=== PATIENT | female | born 1950 | race Caucasian/White ===

== ENCOUNTER 2021-10-19 16:00 | Observation (INO) | payer MEDICARE, SELFPAY ==
--- NOTE | 2021-10-19 16:01 | CTR_ITS ---
PROCEDURE INFORMATION: Exam: CT Head Without Contrast Exam date and time: 10/19/2021 4:40 PM Age: 71 years old Clinical indication: Pain; Headache not specified; Prior surgery; Surgery date: 6+ months; Surgery type: Shunt placement, right mastoid TECHNIQUE: Imaging protocol: Computed tomography of the head without contrast. Radiation optimization: All CT scans at this facility use at least one of these dose optimization techniques: automated exposure control; mA and/or kV adjustment per patient size (includes targeted exams where dose is matched to clinical indication); or iterative reconstruction. COMPARISON: [place] [id number] 08/03/2018 11:45 AM RADIATION DOSE METRICS: Total DLP (mGy-cm): 850.54 FINDINGS: Tubes, catheters and devices: Right inferior parietal ventriculoperitoneal shunt catheter, the tip is in the superior right lateral ventricular atrium. Disproportionate enlargement of the lateral ventricles is present with an Hutchins ratio of 57.4%, previously 54.3%. The anterior third ventricular transverse dimension is 18.4 mm, previously 17.0 mm. The fourth ventricle is mildly prominent, stable in size. Brain: There is prominence of the cisterna magna. Cerebellar hemispheric development appears normal, and there is no mass-effect. This represents a normal variant. No hemorrhage. No mass. Ventricles: Mild hypoattenuating foci are noted in the anterior lateral ventricular periventricular white matter bilaterally. Paranasal sinuses: Hypoplastic/absent left frontal sinus, normal variant. Mastoid air cells: Visualized mastoid air cells are well aerated. Orbital cavities: Bilateral prior cataract surgery with lens replacements. Bones/joints: No acute abnormality. No acute fracture. Soft tissues: Unremarkable. Vasculature: Atherosclerotic calcifications are present involving the carotid artery siphons and vertebral arteries bilaterally. CT/CT head wo con* [id number] IMPRESSION: 1. Lateral and 3rd ventricular predominant ventriculomegaly, slight interval increase in size. 2. Mild chronic microvascular ischemic white matter disease.
[2021-10-19 16:06] VITALS: BP 154/74; PULSE 87; RESP 16; TEMP 36.8; O2SAT 94; BMI 27.3
--- NOTE | 2021-10-19 16:18 | ED_ITS ---
Documented by User: Stef Marquez DO 10/27/21 20:00 HPI - Headache General: Chief Complaint: Headache Stated Complaint: heahache Time Seen by Provider: 10/19/21 16:00 Source: patient Mode of arrival: EMS Limitations: no limitations History of Present Illness: 8-year-old female presents to the emergency room with complaints of diarrhea and generally not feeling well. She had taken a stool softener because she thought she had constipation now she developed diarrhea she also has had trouble with some urinary incontinence she has been very dizzy today. She is not had any fever sweats chills no chest pain or shortness of breath. She has had some mild headache as well. In talking to her it seems her dizziness is her worst complaint. Onset (ago): day(s) Onset description: gradually Exacerbating factors: none Relieving factors: nothing Associated symptoms: Reports lightheadedness; Deny chest pain, confusion, cough, diaphoresis, eye pain, eye redness, fever(s), loss of vision, malaise, nausea, neck stiffness, numbness, paresthesias, photophobia, pre-syncope, rash, seizures, short of breath, sound sensitivity, sy ncope, vomiting or weakness Treatments prior to arrival: none Review of Systems Const: Denies: fever(s), malaise or diaphoresis ENMT: Denies: throat pain, ear or mastoid pain, nasal discharge or nasal congestion Card: Reports: lightheadedness; Denies: chest pain, syncope or pre-syncope Resp: Denies: dyspnea, productive cough or non-productive cough GI: Denies: nausea or vomiting : Denies: flank pain, difficulty voiding, dysuria, urinary frequency or urinary urgency Skin/Breast: Denies: rash Neuro: Denies: confusion PFS ED PFSH: Medical History Dandy Walker malformation Dementia Migraine Normal pressure hydrocephalus Seizure Surgical History History of brain shunt History of cholecystectomy History of hysterectomy Physical Exam Const: COMMON NORMALS: no acute distress GENERAL APPEARANCE: cooperative and comfortable ORIENTATION/CONSCIOUSNESS: Yes awake, Yes oriented to person, Yes oriented to place and Yes oriented to time HENMT: COMMON NORMALS: normocephalic, atraumatic, hearing grossly normal bilaterally, external ears normal, EAC's normal, TM's normal bilaterally, Normal nasal mucous membranes and turbinates present, moist oral mucous membranes and oropharynx normal HEAD & SCALP: normocephalic and atraumatic NOSE: Normal nasal mucous membranes and turbinates present EXTERNAL EAR: Yes external ears normal EXTERNAL AUDITORY CANAL: EAC's normal TYMPANIC MEMBRANE: TM's normal bilaterally Eye: COMMON NORMALS: Equal, round and reactive pupils present, EOMs intact bilaterally, conjunctivae normal and no scleral icterus CONJUNCTIVA: Yes conjunctivae normal PUPIL: Yes Equal, round and reactive pupils present DIRECT OPHTHALMOSCOPY: No photophobia Neck/C-Spine: COMMON NORMALS: full ROM, no lymphadenopathy, supple and no JVD Lymph: LYMPHATIC: no lymphadenopathy noted and no lymphedema noted Resp: COMMON NORMALS: normal respiratory effort, No retractions, No use of acc essory muscles and clear to auscultation bilaterally AUSCULTATION: clear to auscultation bilaterally Cardio: COMMON NORMALS: no JVD, regular rate, regular rhythm and No murmurs present (Cardio) RATE: regular rate RHYTHM: regular rhythm GI: COMMON NORMALS: Soft to palpation and No hepatosplenomegaly present AUSCULTATION: Yes normoactive bowel sounds PALPATION: Yes Soft to palpation, No Tenderness to palpation present (GI), No Guarding due to palpation present (GI) and Yes No hepatosplenomegaly present Extremity: COMMON NORMALS: normal to inspection, capillary refill normal, no clubbing, cyanosis or edema, no calf tenderness and no pedal edema Neuro: SENSORIUM/ORIENTATION: Yes oriented to person, Yes oriented to place and Yes oriented to time Skin: COMMON NORMALS: no rashes or lesions noted GENERAL SKIN EXAM: no rashes or lesions noted Course Vital Signs: Vital signs: Vital Signs Temperature 98.5 F 10/21/21 14:18 Pulse Rate 72 10/21/21 14:18 Respiratory Rate 16 10/21/21 14:18 Blood Pressure 120/59 10/21/21 14:18 Pulse Oximetry 96 10/21/21 14:18 MDM - Headache Medical Decision Making Care signed out to Dr. Vega at change of shift. See final notes for diagnosis and disposition. I took patient over from Dr. Pham. Patient's head CT did show some prominent ventricles everything else is otherwise negative she has had an hypoxia here but CTA blood work is all normal I did ambulate her and she is still quite dizzy and having a hard time with her gait she lives home alone we will admit her for observation as she is a fall risk and to further work-up her dizziness. Lab Data : 10/21/21 04:58 10/21/21 04:[address] 10/19/21 16:01 IMPRESSION: 1. Lateral and 3rd ventricular predominant ventriculomegaly, slight interval increase in size. 2. Mild chronic microvascular ischemic white matter disease. Chest X-Ray 10/19/21 17:16 IMPRESSION: 1. No acute cardiopulmonary process. 2. Incidental/nonacute findings are listed in the report. Chest CTA 10/19/21 17:42 IMPRESSION: 1. No evidence for pulmonary embolism. 2. No acute cardiopulmonary process. 3. Incidental/nonacute findings are listed in the report. Laboratory Results WBC 7.4 10^3/uL (4.0-10.0) 10/19/21 16:37 RBC 4.93 10^6/uL (4.1-5.3) 10/19/21 16:37 Hgb 14.1 g/dL (11.5-15.3) 10/19/21 16:37 Hct 43.1 % (37.0-47.0) 10/19/21 16:37 MCV 87.4 fl (81-99) 10/19/21 16:37 MCH 28.6 pg (28.0-34.0) 10/19/21 16:37 MCHC 32.7 g/dL (30.0-36.0) 10/19/21 16:37 RDW 12.5 % (12.1-15.1) 10/19/21 16:37 Plt Count 364 10^3/cmm (130-400) 10/19/21 16:37 MPV 10.0 fL (7.4-10.4) 10/19/21 16:37 Neut % (Auto) 66.3 % 10/19/21 16:37 Lymph % (Auto) 20.0 % 10/19/21 16:37 Sutter % (Auto) 8.8 % 10/19/21 16:37 Eos % (Auto) 2.2 % 10/19/21 16:37 Baso % (Auto) 1.6 % 10/19/21 16:37 Neut # (Auto) 4.87 10^3/uL (1.8-7.7) 10/19/21 16:37 Lymph # (Auto) 1.5 10^3/uL (0.8-4.8) 10/19/21 16:37 Sutter # (Auto) 0.7 10^3/uL (0.2-0.9) 10/19/21 16:37 Eos # (Auto) 0.2 10^3/uL (0.0-0.8) 10/19/21 16:37 Baso # (Auto) 0.1 10^3/uL (0.0-0.1) 10/19/21 16:37 Nucleated RBC % (auto) 0 % 10/19/21 16:37 Nucleated RBCs # 0.0 /100WBC 10/19/21 16:37 Specimen Type Arterial 10/19/21 17:26 Sample Site Brachial, left 10/19/21 17:26 ABG pH 7.40 (7.35-7.45) 10/19/21 17:26 ABG pCO2 40.1 mmHg (35-45) 10/19/21 17:26 ABG pO2 64.1 mmHg (80.0-100.0) L 10/19/21 17:26 ABG HCO3 24.8 mmol/L (22-26) 10/19/21 17:26 ABG O2 Saturation 93.5 10/19/21 17:26 ABG Base Excess 0.1 mmol/L (-2.0-2.0) 10/19/21 17:26 José Luis Test N/a 10/19/21 17:26 A-a O2 Gradient 10.9 mmHg (5-10) H 10/19/21 17:26 Hematocrit 41.0 % (37-47) 10/19/21 17:26 Hgb O2 Saturation 92.0 % (95-100) L 10/19/21 17:26 Carboxyhemoglobin 1.0 %THgb (0.4-20.1) 10/19/21 17:26 Methemoglobin 0.6 % (0.4-1.5) 10/19/21 17:26 Total Hemoglobin 13.4 g/dL (12-16) 10/19/21 17:26 Sodium 138.0 mmol/L (131-143) 10/19/21 17:26 Potassium 4.3 mmol/L (3.5-5.0) 10/19/21 17:26 Glucose 165.0 mg/dL (70-115) H 10/19/21 17:26 Ionized Calcium 1.2 mmol/L (1.1-1.4) 10/19/21 17:26 O2 Delivery Device Nc 10/19/21 17:26 O2 Liters/Min 2.0 % 10/19/21 17:26 FiO2 28.0 % 10/19/21 17:26 Regulatory Auditor ID Amh 10/19/21 17:26 Sodium 135 mmol/L (136-145) L 10/19/21 16:37 Potassium 5.3 mmol/L (3.5-5.1) H 10/19/21 16:37 Chloride 98 mmol/L (98-107) 10/19/21 16:37 Carbon Dioxide 24 mmol/L (22-29) 10/19/21 16:37 Anion Gap 18.3 (5-19) 10/19/21 16:37 BUN 12 mg/dL (8-23) 10/19/21 16:37 Creatinine 1.0 mg/dL (0.5-0.9) H 10/19/21 16:37 GFR Calculation 54.8 mL/min (90-130) L 10/19/21 16:37 Glucose 185 mg/dL (65-115) H 10/19/21 16:37 Calculated Osmolality 285 mOsm/kg (285-295) 10/19/21 16:37 Calcium 9.0 mg/dL (8.5-10.5) 10/19/21 16:37 Troponin T Baseline 6 ng/L (0-10) 10/19/21 16:33 Troponin T 120 Minute 6.00 ng/L (0-10) 10/19/21 19:25 Delta Troponin T 0 ABS# (0-10) 10/19/21 19:25 NT-Pro-B Natriuret Pep 172 pg/mL (0-125) H 10/19/21 16:37 Discharge Plan Discharge Patient Disposition: Admitted As Inpatient Admit Provider: Jhonathan Powell Clinical Impression: Dizziness, Hypoxia Condition: Stable Discharge Diet: Cardiac and Diabetic Discharge Activity: Resume usual activity and Increase activity as tolerated Coding Level of Care Code ED Wet Washer Machine for Malcolm Dao NIH stroke score NIHSS Level Of Consciousness - 1a: 0 Documented by User: Gustabo Vega MD 10/19/21 19:46 HPI - Headache General: Chief Complaint: Headache Stated Complaint: heahache Time Seen by Provider: 10/19/21 16:00 History of Present Illness: . PFSH ED PFSH: Medical History Dandy Walker malformation Dementia Migraine Normal pressure hydrocephalus Seizure Surgical History History of brain shunt History of cholecystectomy History of hysterectomy Course Vital Signs: Vital signs: Vital Signs Temperature 98.5 F 10/21/21 14:18 Pulse Rate 72 10/21/21 14:18 Respiratory Rate 16 10/21/21 14:18 Blood Pressure 120/59 10/21/21 14:18 Pulse Oximetry 96 10/21/21 14:18 MDM - Headache Medical Decision Making I took patient over from Dr. Pham. Patient's head CT did show some prominent ventricles everything else is otherwise negative she has had an hypoxia here but CTA blood work is all normal I did ambulate her and she is still quite dizzy and having a hard time with her gait she lives home alone we will admit her for observation as she is a fall risk and to further work-up her dizziness. Lab Data : 10/21/21 04:58 10/21/21 04:[address] 10/19/21 16:01 IMPRESSION: 1. Lateral and 3rd ventricular predominant ventriculomegaly, slight interval increase in size. 2. Mild chronic microvascular ischemic white matter disease. Chest X-Ray 10/19/21 17:16 IMPRESSION: 1. No acute cardiopulmonary process. 2. Incidental/nonacute findings are listed in the report. Chest CTA 10/19/21 17:42 IMPRESSION: 1. No evidence for pulmonary embolism. 2. No acute cardiopulmonary process. 3. Incidental/nonacute findings are listed in the report. Laboratory Results WBC 7.4 10^3/uL (4.0-10.0) 10/19/21 16:37 RBC 4.93 10^6/uL (4.1-5.3) 10/19/21 16:37 Hgb 14.1 g/dL (11.5-15.3) 10/19/21 16:37 Hct 43.1 % (37.0-47.0) 10/19/21 16:37 MCV 87.4 fl (81-99) 10/19/21 16:37 MCH 28.6 pg (28.0-34.0) 10/19/21 16:37 MCHC 32.7 g/dL (30.0-36.0) 10/19/21 16:37 RDW 12.5 % (12.1-15.1) 10/19/21 16:37 Plt Count 364 10^3/cmm (130-400) 10/19/21 16:37 MPV 10.0 fL (7.4-10.4) 10/19/21 16:37 Neut % (Auto) 66.3 % 10/19/21 16:37 Lymph % (Auto) 20.0 % 10/19/21 16:37 Sutter % (Auto) 8.8 % 10/19/21 16:37 Eos % (Auto) 2.2 % 10/19/21 16:37 Baso % (Auto) 1.6 % 10/19/21 16:37 Neut # (Auto) 4.87 10^3/uL (1.8-7.7) 10/19/21 16:37 Lymph # (Auto) 1.5 10^3/uL (0.8-4.8) 10/19/21 16:37 Sutter # (Auto) 0.7 10^3/uL (0.2-0.9) 10/19/21 16:37 Eos # (Auto) 0.2 10^3/uL (0.0-0.8) 10/19/21 16:37 Baso # (Auto) 0.1 10^3/uL (0.0-0.1) 10/19/21 16:37 Nucleated RBC % (auto) 0 % 10/19/21 16:37 Nucleated RBCs # 0.0 /100WBC 10/19/21 16:37 Specimen Type Arterial 10/19/21 17:26 Sample Site Brachial, left 10/19/21 17:26 ABG pH 7.40 (7.35-7.45) 10/19/21 17: ABG pCO2 40.1 mmHg (35-45) 10/19/21 17: ABG pO2 64.1 mmHg (80.0-100.0) L 10/19/21 17: ABG HCO3 24.8 mmol/L (22-26) 10/19/21 17: ABG O2 Saturation 93.5 10/19/21 17: ABG Base Excess 0.1 mmol/L (-2.0-2.0) 10/19/21 17: José Luis Test N/a 10/19/21 17: A-a O2 Gradient 10.9 mmHg (5-10) H 10/19/21 17:26 Hematocrit 41.0 % (37-47) 10/19/21 17:26 Hgb O2 Saturation 92.0 % (95-100) L 10/19/21 17:26 Carboxyhemoglobin 1.0 %THgb (0.4-20.1) 10/19/21 17: Methemoglobin 0.6 % (0.4-1.5) 10/19/21 17:26 Total Hemoglobin 13.4 g/dL (12-16) 10/19/21 17:26 Sodium 138.0 mmol/L (131-143) 10/19/21 17:26 Potassium 4.3 mmol/L (3.5-5.0) 10/19/21 17:26 Glucose 165.0 mg/dL (70-115) H 10/19/21 17:26 Ionized Calcium 1.2 mmol/L (1.1-1.4) 10/19/21 17: O2 Delivery Device Nc 10/19/21 17:26 O2 Liters/Min 2.0 % 10/19/21 17:26 FiO2 28.0 % 10/19/21 17:26 Regulatory Auditor ID Amh 10/19/21 17:26 Sodium 135 mmol/L (136-145) L 10/19/21 16:37 Potassium 5.3 mmol/L (3.5-5.1) H 10/19/21 16:37 Chloride 98 mmol/L (98-107) 10/19/21 16:37 Carbon Dioxide 24 mmol/L (22-29) 10/19/21 16:37 Anion Gap 18.3 (5-19) 10/19/21 16:37 BUN 12 mg/dL (8-23) 10/19/21 16:37 Creatinine 1.0 mg/dL (0.5-0.9) H 10/19/21 16:37 GFR Calculation 54.8 mL/min (90-130) L 10/19/21 16:37 Glucose 185 mg/dL (65-115) H 10/19/21 16:37 Calculated Osmolality 285 mOsm/kg (285-295) 10/19/21 16:37 Calcium 9.0 mg/dL (8.5-10.5) 10/19/21 16:37 Troponin T Baseline 6 ng/L (0-10) 10/19/21 16:33 Troponin T 120 Minute 6.00 ng/L (0-10) 10/19/21 19:25 Delta Troponin T 0 ABS# (0-10) 10/19/21 19:25 NT-Pro-B Natriuret Pep 172 pg/mL (0-125) H 10/19/21 16:37 EKG Data EKG 1: I personally reviewed and interpreted this EKG as follows: EKG interpretation date: 10/19/21 EKG interpretation time: 18:23 Interpretation: nsr hr [address] or t wave abnormalities qrs 90 qtc 402 Discharge Plan Discharge Patient Disposition: Admitted As Inpatient Admit Provider: Jhonathan Powell Clinical Impression: Dizziness, Hypoxia Condition: Stable Discharge Diet: Cardiac and Diabetic Discharge Activity: Resume usual activity and Increase activity as tolerated Coding Level of Care Code ED Wet Washer Machine for Chg Feliberto
[2021-10-19] MEDS: sodium chloride 0.9% 500 ML IV (16:23)
[2021-10-19] MEDS: promethazine 25 mg/mL SDV 1 mL IM (16:23)
[2021-10-19 16:24] VITALS: RESP 24; O2SAT 93
[2021-10-19] MEDS: morphine 4 mg/mL SDV 1 mL IVP (16:24)
[2021-10-19 16:30] VITALS: BP 153/67; O2SAT 94
[2021-10-19 16:48] LABS: Basophils # 0.1 10^3/uL (0.0-0.1); Basophils % 1.6 %; Eosinophils # 0.2 10^3/uL (0.0-0.8); Eosinophils % 2.2 %; Hematocrit 43.1 % (37.0-47.0); Hemoglobin 14.1 g/dL (11.5-15.3); Lymphocytes # 1.5 10^3/uL (0.8-4.8); Mean Corpuscular HGB Conc 32.7 g/dL (30.0-36.0); Mean Corpuscular Hemoglobin 28.6 pg (28.0-34.0); Mean Corpuscular Volume 87.4 fl (81-99); Monocytes # 0.7 10^3/uL (0.2-0.9); Monocytes % 8.8 %; Neutrophils # 4.87 10^3/uL (1.8-7.7); Neutrophils % 66.3 %; Nucleated Red Blood Cells % 0 %; Platelet Count 364 10^3/cmm (130-400); Red Blood Count 4.93 10^6/uL (4.1-5.3); Red Cell Distribution Width 12.5 % (12.1-15.1); White Blood Count 7.4 10^3/uL (4.0-10.0)
[2021-10-19 17:12] LABS: Blood Urea Nitrogen 12 mg/dL (8-23); Carbon Dioxide 24 mmol/L (22-29); Chloride 98 mmol/L (98-107); Glomerular Filtration Rate 54.8 mL/min (90-130); Glucose 185 mg/dL (65-115); Osmolality Calculated 285 mOsm/kg (285-295); Sodium 135 mmol/L (136-145)
[2021-10-19 17:14] LABS: Anion Gap 18.3 (5-19); Potassium 5.3 mmol/L (3.5-5.1)
--- NOTE | 2021-10-19 17:16 | XRR_ITS ---
PROCEDURE INFORMATION: Exam: XR Chest Exam date and time: 10/19/2021 5:24 PM Age: 71 years old Clinical indication: Cough and dyspnea; Additional info: Dyspnea/cough TECHNIQUE: Imaging protocol: XR of the chest. Views: 1 view. COMPARISON: CT abdomen pelvis w con* [id number] 04/02/2017 8:05 PM FINDINGS: Tubes, catheters and devices: There is tubing projecting along the right chest from a ventriculoperitoneal shunt. Lungs: Lungs are clear bilaterally. Pleural spaces: No pleural effusion. No pneumothorax. Heart/Mediastinum: The cardiac silhouette and mediastinal contours are unremarkable. Vasculature: Vascular calcifications in the aorta. Bones/joints: Unremarkable for age. XR/XR chest 1V portable [id number] IMPRESSION: 1. No acute cardiopulmonary process. 2. Incidental/nonacute findings are listed in the report.
[2021-10-19 17:37] LABS: ABG PCO2 40.1 mmHg (35-45); Alveolar-Arterial Oxygen Gradi 10.9 mmHg (5-10); Base Excess ABG 0.1 mmol/L (-2.0-2.0); Blood Gas Operator Identificat AMH; Blood Gas Sample Site Brachial, left; Blood Gas Sample Type Arterial; HCO3 ABG 24.8 mmol/L (22-26); Ionized Calcium Level - ABG 1.2 mmol/L (1.1-1.4); Methemoglobin 0.6 % (0.4-1.5); Oxygen Device NC; Oxygen Saturation ABG 93.5; PO2 ABG 64.1 mmHg (80.0-100.0); Potassium Level - ABG 4.3 mmol/L (3.5-5.0); Total Hemoglobin 13.4 g/dL (12-16)
--- NOTE | 2021-10-19 17:42 | CTR_ITS ---
PROCEDURE INFORMATION: Exam: CTA Chest With Contrast Exam date and time: 10/19/2021 5:59 PM Age: 71 years old Clinical indication: Hyperventilation; Additional info: Hypoxia TECHNIQUE: Imaging protocol: Computed tomographic angiography of the chest with contrast. 3D rendering (Not supervised by radiologist): MIP and/or 3D reconstructed images were created by the technologist. Radiation optimization: All CT scans at this facility use at least one of these dose optimization techniques: automated exposure control; mA and/or kV adjustment per patient size (includes targeted exams where dose is matched to clinical indication); or iterative reconstruction. Contrast material: VISIPAQUE 320; Contrast volume: 80 ml; Contrast route: INTRAVENOUS (IV); COMPARISON: CR (CHEST, ) 10/19/2021 5:24 PM RADIATION DOSE METRICS: Total DLP (mGy-cm): 502.57 FINDINGS: Tubes, catheters and devices: Tubing from a ventriculoperitoneal shunt traverses the right anterior chest wall. Pulmonary arteries: No filling defects in the pulmonary arteries to suggest pulmonary embolism. Aorta: Mild atherosclerotic changes in the visualized arteries. Trachea: Tracheobronchial structures are patent. Lungs: Mild interstitial fibrotic changes in the periphery of both lungs. No focal consolidation. No pulmonary edema. No pulmonary parenchymal nodules or masses. Pleural spaces: No pneumothorax. No pleural effusion. Heart: The heart is normal in size. Mild atherosclerotic calcification in the coronary arteries. Esophagus: The esophagus is unremarkable. The esophagus is unremarkable. Mediastinal space: No mediastinal hematoma. No pneumomediastinum. Lymph nodes: No lymphadenopathy. Liver: The visualized liver is unremarkable. Pancreas: The visualized pancreas is unremarkable. No pancreatic ductal dilatation. Spleen: The visualized spleen is unremarkable. Bones/joints: Mild degenerative changes in the visualized spine. Soft tissues: No acute abnormality in the extrathoracic soft tissues. CT/CT angio chest PE protcl [id number] IMPRESSION: 1. No evidence for pulmonary embolism. 2. No acute cardiopulmonary process. 3. Incidental/nonacute findings are listed in the report.
--- NOTE | 2021-10-19 17:42 | ECG_ITS ---
[facility] Test Date: 2021-10-19 Pat Name: Homa Shepard Department: Room: Gender: Female Grey Washer: : 1950 Requested By: Stef Craven Order Number: [id number] Sudhir MD: Yue Penn M.D. Measurements Intervals [place] Rate: 81 P: 60 CO: 157 QRS: 17 QRSD: 90 T: 69 QT: 365 QTc: 425 Interpretive Statements SINUS RHYTHM NONSPECIFIC T-WAVE ABNORMALITY No previous ECG available for comparison Electronically Signed On 10-19-2021 21:14:06 CDT by Yue Penn M.D. [email or web address]
[2021-10-19 17:45] VITALS: BP 156/69; O2SAT 98
[2021-10-19] MEDS: iodixanol 320 mg/mL 100mL Btl IV (18:06)
--- NOTE | 2021-10-19 18:25 | PC.NURSE ---
EKG done at 1825 and shown to ER doctor
[2021-10-19 18:53] LABS: Troponin(5th) Baseline 6 ng/L (0-10)
[2021-10-19 19:59] LABS: NT Pro B Type Natriuretic Pept 172 pg/mL (0-125)
[2021-10-19 20:05] LABS: Troponin 5 2HR Delta 0 ABS# (0-10)
[2021-10-19 20:56] VITALS: BP 133/73; PULSE 84; RESP 18; O2SAT 99
--- NOTE | 2021-10-19 21:03 | P.HP_ITS ---
Providers/Chief Complaint Chief Complaint: heahache History of Present Illness Homa Shepard is a 71 year old female with past medical history of Dandy- Walker syndrome, has SPINNING MACHINE TENDER shunt in place came in with chief complaint of headache, dizziness, cough,as well as difficulty with gait , she is very wobbly ,going on for about a week time. She is also complaining of low-grade fever at home. Currently she is denying any chest pain, nausea vomiting, urinary complaints. Upon arrival in the ER she was worked up for above-mentioned complaint. CT head without contrast: Lateral and 3rd ventricular predominant ventriculomegaly, slight interval increase in size. CT angio chest PE?: No evidence for pulmonary embolism.Mild interstitial fibrotic changes in the periphery of both lungs. No focal consolidation. No pulmonary edema. No pulmonary parenchymal nodules or masses. Pertinent labs: WBC 7.4, H&H 14/43 PLT : 364 , serum sodium 135, serum potassium 5.3 , BUN and serum creatinine :12/1 ABG: pH: 7.40 , PCO2 40 , PO2 64, FiO2: 28% Review of Systems General: Reports: 10 or more systems reviewed and unremarkable except in HPI and below Narrative: 69-year-old currently not in acute distress being admitted for chest pain evaluation Const: Reports: fever(s); Denies: chills, body aches, change in appetite or diaphoresis Card: Denies: palpitations, edema, swelling of feet/ankles, dyspnea on exertion, orthopnea or leg pain with exertion Resp: Denies: dyspnea, wheezing or pain on inspiration GI: Denies: abdominal pain, nausea, vomiting, diarrhea or constipation : Denies: flank pain Musc: Denies: back pain, extremity pain or extremity swelling Neuro: Reports: difficulty walking; Denies: headache(s) or confusion Medications/Allergies Home Medications Medication Instructions Recorded Confirmed Last Taken Type clonazepam 0.5 mg tablet 0.5 mg PO BEDTIME 10/19/21 10/19/21 10/18/21 History empagliflozin 25 mg-linagliptin 5 1 tab PO QAM 10/19/21 10/19/21 10/18/21 History mg tablet (Glyxambi) simvastatin 20 mg tablet 20 mg PO DAILY 10/19/21 10/19/21 10/18/21 History venlafaxine 150 mg 150 mg PO DAILY 06/04/3010/19/21 10/18/21 History capsule,extended release 24 hr Allergies Allergy/AdvReac Type Severity Reaction Status Date / Time doxycycline Allergy ADR-Dizzine Verified 10/19/21 16:05 ss metformin Allergy ALGY-Hives Verified 10/19/21 23:09 Penicillins Allergy ALGY-Hives Verified 10/19/21 16:05 Sulfa (Sulfonamide Allergy ADR-Vomitin Verified 10/19/21 16:05 Antibiotics) g Vitals/I&O/Wt Last Vital Signs Temp 98.3 F 10/19/21 16:06 Pulse 84 10/19/21 20:56 Resp 18 10/19/21 20:56 BP 133/73 10/19/21 20:56 Pulse Ox 99 10/19/21 20:56 Weight last 48 hrs Weight 81.647 kg Physical Exam Const: COMMON NORMALS: patient oriented x3 HENMT: COMMON NORMALS: normocephalic and atraumatic HEAD & SCALP: normocephalic and atraumatic Chest: CHEST: Yes Symmetrical chest wall rise Resp: COMMON NORMALS: clear to auscultation bilaterally EFFORT & INSPECTION: Yes symmetric chest movement AUSCULTATION: clear to auscultation bilaterally Cardio: COMMON NORMALS: regular rate, regular rhythm, S1 normal heart sound present, S2 normal heart sound present, No gallops present (Cardio), No murmurs present (Cardio), No rub (Cardio) and Peripheral pulses 2+ throughout RATE: regular rate RHYTHM: regular rhythm HEART SOUNDS: S1 normal heart sound present and S2 normal heart sound present PERIPHERAL PULSES: Peripheral pulses 2+ throughout GI: COMMON NORMALS: Normal to inspection, nondistended, normoactive bowel sounds present, Soft to palpation, non-tender, No hepatosplenomegaly present and no masses AUSCULTATION: Yes normoactive bowel sounds PALPATION: Yes Soft to palpation and Yes No hepatosplenomegaly present RECTAL EXAM: deferred Extremity: COMMON NORMALS: no clubbing, cyanosis or edema and no pedal edema Neuro: COMMON NORMALS: patient oriented x3 Data : 10/20/21 04:40 10/20/21 04:40 A&P Assessment and plan (1) Dizziness: Status: Acute (2) Hypoxia: Status: Acute (3) Sinusitis: Status: Acute Plan 71 year old female with past medical history of Dandy-Walker syndrome, has SPINNING MACHINE TENDER shunt in place came in with chief complaint of headache, dizziness, cough,as well as difficulty with gait , she is very wobbly ,going on for about a week time. She is also complaining of low-grade fever at home. Assessment: Dizziness Bronchitis Hypoxia: Possibly secondary to bronchitis Sinusitis Hyperkalemia Plan: Check orthostatic vital sign Fall precaution Physical therapy Incentive spirometer Flutter valve Monitor BMP Empirically on levofloxacin SPINNING MACHINE TENDER shunt in place CODE STATUS: Full code DVT prophylaxis; on Lovenox Attestations Medical Necessity Statement*: Patient is to be in hospital for management of dizziness. Time Spent in Patient Care: Greater than 35 minutes (>than 50% of time spent in counselling and/or direct pt care on unit) . Coding Level of Care Code Acute Double Needle Operator for [facility] Fwd Exam Detailed Diagnoses Dizziness R42 Hypoxia R09.02 Sinusitis J32.9
[2021-10-19 22:31] VITALS: BMI 27.3
[2021-10-19 22:37] VITALS: O2SAT 98
[2021-10-19] MEDS: enoxaparin 40 mg/0.4 mL Syringe SUBCUT (22:45)
[2021-10-19] MEDS: levofloxacin-dextrose 5 % 750 MG/150 ML PREMIX 100 MG IV (22:45)
[2021-10-19] MEDS: acetaminophen 325 mg Tablet 650 MG PO (23:50)
[2021-10-20] VITALS (10 sets, daily range): BP systolic 94–132; BP diastolic 56–76; PULSE 79–124; RESP 17–18; TEMP 36.3–36.9; O2SAT 93–97
[2021-10-20 00:15] LABS: Troponin 5 6HR 7.67 ng/L (0-10)
--- NOTE | 2021-10-20 00:25 | PC.NURSE ---
Addendum entered by Fiona Horne LPN 10/20/21 01:54: ER NURSE CHARTED ONE TIME TYLENOL ORDER AT 2350 Original Note: ONE TIME PO TYLENOL ORDER PT WAS ORDERED ONE TIME TYLENOL AT 2022 WHEN PT WAS STILL IN ER. WHEN PT ARRIVED ON [facility] FLOOR, MEDICATION STILL SHOWED NOT GIVEN WHEN PT CAME TO THE FLOOR A LITTLE AFTER 2200. WHEN ASKED IF PT WAS IN ANY PAIN, PT DENIED PAIN STATING SHE FELT BETTER AFTER TYLENOL SHE GOT DOWN STAIRS. THIS NURSE SPOKE WITH ER NURSE Jian AUSTIN RN WHO ACKNOWLEDGED THAT SHE DID GIVE PT TYLENOL AND MUST NOT HAVE CHARTED IT BUT THAT SHE WOULD. THIS NURSE WAITED 2 HOURS MORE BEFORE NON ADMIN THE MED WITH NOTE THAT IT WAS IN FACT GIVEN, IN THE JUL D/T MED NOT BEING CHARTED GIVEN
[2021-10-20] MEDS: temazepam 15 mg Capsule PO (00:34)
[2021-10-20 00:45] LABS: Troponin 5 6HR Delta 1.67 ng/L (0-12)
[2021-10-20 05:02] LABS: Basophils # 0.1 10^3/uL (0.0-0.1); Basophils % 1.6 %; Eosinophils # 0.3 10^3/uL (0.0-0.8); Eosinophils % 5.1 %; Hematocrit 38.8 % (37.0-47.0); Hemoglobin 12.8 g/dL (11.5-15.3); Lymphocytes # 2.4 10^3/uL (0.8-4.8); Mean Corpuscular Hemoglobin 28.8 pg (28.0-34.0); Mean Corpuscular Volume 87.4 fl (81-99); Mean Platelet Volume 9.6 fL (7.4-10.4); Monocytes # 0.8 10^3/uL (0.2-0.9); Neutrophils # 2.06 10^3/uL (1.8-7.7); Neutrophils % 35.9 %; Nucleated Red Blood Cells % 0 %; Platelet Count 337 10^3/cmm (130-400); Red Blood Count 4.44 10^6/uL (4.1-5.3); Red Cell Distribution Width 12.5 % (12.1-15.1); White Blood Count 5.7 10^3/uL (4.0-10.0)
[2021-10-20 05:19] LABS: Anion Gap 13.9 (5-19); Blood Urea Nitrogen 12 mg/dL (8-23); Calcium 9.2 mg/dL (8.5-10.5); Carbon Dioxide 24 mmol/L (22-29); Chloride 105 mmol/L (98-107); Creatinine Clr Calc Pharmacy 65.1918; Glomerular Filtration Rate 61.9 mL/min (90-130); Glucose 120 mg/dL (65-115); Magnesium 2.3 mg/dL (1.7-2.3); Osmolality Calculated 289 mOsm/kg (285-295); Potassium 3.9 mmol/L (3.5-5.1); Sodium 139 mmol/L (136-145)
[2021-10-20 12:26] LABS: Thyroid Stimulating Hormone 2.08 uIU/mL (0.27-4.20)
[2021-10-20] MEDS: sodium chloride 0.9% 1,000 ML 75 ML IV (13:14)
[2021-10-20] MEDS: acetaminophen 325 mg Tablet 650 MG PO (16:27)
[2021-10-20 18:56] LABS: Influenza A by IFA Negative (Negative); Influenza B by IFA Negative (Negative)
[2021-10-20 20:22] LABS: Adenovirus Not Detected (NOT DETECT); Chlamydia Pneumoniae Not Detected (NOT DETECT); Coronavirus 229E,HKU1,NL63,OC4 Not Detected (NOT DETECT); Human Metapneumovirus Not Detected (NOT DETECT); Human Rhinovirus/Enterovirus Not Detected (NOT DETECT); Influenza A Not Detected (NOT DETECT); Influenza A H1 Not Detected (NOT DETECT); Influenza A H1-2009 Not Detected (NOT DETECT); Influenza A H3 Not Detected (NOT DETECT); Influenza B Not Detected (NOT DETECT); Mycoplasma Pneumoniae Not Detected (NOT DETECT); Parainfluenza Virus Type 1 Not Detected (NOT DETECT); Parainfluenza Virus Type 2 Not Detected (NOT DETECT); Parainfluenza Virus Type 3 Not Detected (NOT DETECT); Parainfluenza Virus Type 4 Not Detected (NOT DETECT); Respiratory Syncytial Virus A Not Detected (NOT DETECT); Respiratory Syncytial Virus B Not Detected (NOT DETECT); SARS-COV-2 Not Detected (NOT DETECT)
[2021-10-20] MEDS: enoxaparin 40 mg/0.4 mL Syringe SUBCUT (20:32)
[2021-10-20] MEDS: levofloxacin-dextrose 5 % 750 MG/150 ML PREMIX 100 MG IV (20:33)
--- NOTE | 2021-10-20 22:26 | P.PN_ITS ---
Subjective Subjective: Admitted overnight. Denies any N/V currently. States headache is better and she thinks its 2/2 malfunction of BILINGUAL INSTRUCTOR shunt. denies any dysuria, cough, cold Vitals/I&O/Wt Last Vital Signs Temp 97.3 F L 10/20/21 20:00 Pulse 79 10/20/21 20:00 Resp 17 10/20/21 20:00 BP 124/69 10/20/21 20:00 Pulse Ox 94 10/20/21 20:00 10/20/21 10/20/21 10/20/21 06:59 14:59 22:59 Intake Total 150 / 150 260 / 260 150 / 410 Output Total 1500 / 1500 Balance 150 / 150 260 / 260 -1350 / -1090 Weight last 48 hrs Weight 81.647 kg Weight 81.647 kg Physical Exam Const: COMMON NORMALS: patient oriented x3 HENMT: COMMON NORMALS: normocephalic and atraumatic HEAD & SCALP: normocephalic and atraumatic Eye: COMMON NORMALS: no scleral icterus GENERAL EYE: appearance normal, both eyes and all related structures Chest: COMMONS NORMALS: normal inspection of the chest and normal palpation of entire chest wall CHEST: Yes Symmetrical chest wall rise Resp: COMMON NORMALS: clear to auscultation bilaterally EFFORT & INSPECTION: Yes symmetric chest movement AUSCULTATION: clear to auscultation bilaterally Cardio: COMMON NORMALS: regular rate, regular rhythm, S1 normal heart sound present, S2 normal heart sound present, No gallops present (Cardio), No murmurs present (Cardio), No rub (Cardio) and Peripheral pulses 2+ throughout RATE: regular rate RHYTHM: regular rhythm HEART SOUNDS: S1 normal heart sound present and S2 normal heart sound present PERIPHERAL PULSES: Peripheral pulses 2+ throughout GI: COMMON NORMALS: Normal to inspection, nondistended, normoactive bowel sounds present, Soft to palpation, non-tender, No hepatosplenomegaly present and no masses AUSCULTATION: Yes normoactive bowel sounds PALPATION: Yes Soft to palpation and Yes No hepatosplenomegaly present RECTAL EXAM: deferred Extremity: COMMON NORMALS: no clubbing, cyanosis or edema and no pedal edema Neuro: COMMON NORMALS: patient oriented x3 Data : 10/20/21 04:40 10/20/21 04:40 Micro: Microbiology 10/20/21 21:41 Blood Culture - Preliminary Blood SPECIMEN COLLECTED 10/20/21 21:39 Blood Culture - Preliminary Blood SPECIMEN COLLECTED A&P Assessment and plan (1) Dizziness: Status: Acute (2) Hypoxia: Status: Acute (3) Sinusitis: Status: Acute (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 Most likely needs revision/re-adjustment of BILINGUAL INSTRUCTOR shunt. Check ortho-statics. PT Meclizine PRN Given on and fever can not r/o viral syndrome. Check Influenza/ Covid PCR, UA, bacterial antigen, urine legionella. 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
[2021-10-21] VITALS: BP 127/75; PULSE 73; RESP 17; TEMP 36.1; O2SAT 92
[2021-10-21 00:07] LABS: Add Urine Microscopic? NO; Charge for UA Resulting for Rev
[2021-10-21 00:15] LABS: Bilirubin Urine Neg (Negative); Blood Urine Neg (Negative); Glucose Urine UA 4+ (Normal); Ketones Urine Negative (Negative); Leukocyte Esterase Urine Negative (Negative); Nitrate Urine Negative (Negative); Protein Urine Neg (Negative); Urine Appearance Clear (CLEAR); Urine Color Yellow (Yellow); Urobilinogen Urine Norm (Negative); pH Urine 6 (5-7)
[2021-10-21 00:20] LABS: Amphetamines Screen Urine Negative (Negative); Barbiturates Screen Urine Negative (Negative); Benzodiazepines Screen Urine Positive (Negative); Cocaine Screen Urine Negative (Negative); Opiate Screen Urine Positive (Negative); PCP Screen Urine Negative (Negative); THC Screen Urine Negative (Negative)
[2021-10-21] MEDS: acetaminophen 325 mg Tablet 650 MG PO ×2 (01:28→09:59)
[2021-10-21 04:00] VITALS: BP 129/77; BP 131/79; BP 138/83; PULSE 85; PULSE 87; PULSE 92; RESP 17; TEMP 37.1; O2SAT 95
[2021-10-21 04:31] LABS: Glucose Point of Care 137 mg/dL (70-110)
[2021-10-21 05:36] LABS: Basophils # 0.1 10^3/uL (0.0-0.1); Basophils % 1.1 %; Eosinophils # 0.2 10^3/uL (0.0-0.8); Eosinophils % 3.2 %; Hematocrit 36.2 % (37.0-47.0); Hemoglobin 12.3 g/dL (11.5-15.3); Lymphocytes % 32.5 %; Mean Corpuscular Hemoglobin 29.2 pg (28.0-34.0); Mean Platelet Volume 9.6 fL (7.4-10.4); Monocytes # 0.8 10^3/uL (0.2-0.9); Monocytes % 13.1 %; Neutrophils # 3.02 10^3/uL (1.8-7.7); Neutrophils % 49.1 %; Nucleated Red Blood Cells % 0 %; Platelet Count 323 10^3/cmm (130-400); Red Blood Count 4.21 10^6/uL (4.1-5.3); Red Cell Distribution Width 12.3 % (12.1-15.1); White Blood Count 6.2 10^3/uL (4.0-10.0)
[2021-10-21 06:00] LABS: Alanine Aminotransferase 18 U/L (0-33); Alkaline Phosphatase 128 IU/L (35-105); Anion Gap 14.8 (5-19); Aspartate Amino Transferase 20 U/L (0-32); Blood Urea Nitrogen 11 mg/dL (8-23); Calcium 8.4 mg/dL (8.5-10.5); Carbon Dioxide 22 mmol/L (22-29); Chloride 104 mmol/L (98-107); Creatinine Clr Calc Pharmacy 65.1918; Globulin 3.6 g/dL (1.3-4.6); Glomerular Filtration Rate 61.9 mL/min (90-130); Glucose 132 mg/dL (65-115); Osmolality Calculated 285 mOsm/kg (285-295); Potassium 3.8 mmol/L (3.5-5.1); Sodium 137 mmol/L (136-145); Total Bilirubin 0.3 mg/dL (0.15-1.2); Total Protein 6.6 g/dL (6.6-8.7)
[2021-10-21 06:01] LABS: Cholesterol 165 mg/dL (0-200); HDL Cholesterol 33 mg/dL (60-100); LDL Cholesterol Calculated 83 mg/dL (50-129); Triglycerides 246 mg/dL (0-150); VLDL Cholestrol Calculation 49 mg/dL (0-30)
[2021-10-21 06:03] LABS: Estmated Average Glucose 192; Hemoglobin A1C 8.3 % (4.0-6.0)
[2021-10-21 07:06] VITALS: BP 120/59; PULSE 72; RESP 16; TEMP 36.9; O2SAT 96
[2021-10-21 10:00] VITALS: BP 114/60; BP 116/61; BP 118/60
--- NOTE | 2021-10-21 10:03 | PM.DCS ---
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 Patient was complaining of low-grade fever for few days at home. She was denying any chest pain, nausea vomiting, dysuria. Hospital Course Hospital Course Patient admitted to the hospital further evaluation and management of headache given her past medical history of Dandy-Walker syndrome and a COMPUTER HELP DESK REPRESENTATIVE shunt. CT scan was done on admission which was consistent with predominant third ventriculomegaly, lateral ventriculomegaly which is slightly increased in size since last CT scan. Patient remained afebrile during hospitalization. COVID-19 PCR and flu were negative. UA was negative for UTI. It is possible that patient's headache is most likely secondary to malfunction of COMPUTER HELP DESK REPRESENTATIVE shunt which needs further readjustment. Patient was advised to follow-up with her outpatient neurologist for further readjustment of COMPUTER HELP DESK REPRESENTATIVE shunt. Walker has been provided to the patient as per physical therapy evaluation. She has been discharged in hemodynamically stable condition with advised to follow-up with her primary care provider within next 2 weeks and her neurologist within next 1 week. Physical Exam Const: COMMON NORMALS: patient oriented x3 HENMT: COMMON NORMALS: normocephalic and atraumatic HEAD & SCALP: normocephalic and atraumatic Eye: COMMON NORMALS: no scleral icterus GENERAL EYE: appearance normal, both eyes and all related structures Chest: COMMONS NORMALS: normal inspection of the chest and normal palpation of entire chest wall CHEST: Yes Symmetrical chest wall rise Resp: COMMON NORMALS: clear to auscultation bilaterally EFFORT & INSPECTION: Yes symmetric chest movement AUSCULTATION: clear to auscultation bilaterally Cardio: COMMON NORMALS: regular rate, regular rhythm, S1 normal heart sound present, S2 normal heart sound present, No gallops present (Cardio), No murmurs present (Cardio), No rub (Cardio) and Peripheral pulses 2+ throughout RATE: regular rate RHYTHM: regular rhythm HEART SOUNDS: S1 normal heart sound present and S2 normal heart sound present PERIPHERAL PULSES: Peripheral pulses 2+ throughout GI: COMMON NORMALS: Normal to inspection, nondistended, normoactive bowel sounds present, Soft to palpation, non-tender, No hepatosplenomegaly present and no masses AUSCULTATION: Yes normoactive bowel sounds PALPATION: Yes Soft to palpation and Yes No hepatosplenomegaly present RECTAL EXAM: deferred Extremity: COMMON NORMALS: no clubbing, cyanosis or edema and no pedal edema Neuro: COMMON NORMALS: patient oriented x3 Discharge Data Studies Completed and Pending Completed Studies During Hospitalization Category Date Time Status CT angio chest PE protcl [id number] Stat Cat Scan 10/19/21 17:[address] head wo con* [id number] Stat Cat Scan 10/19/21 16:01 Completed XR chest 1V portable [id number] Stat Exams 10/19/21 17:16 Completed Pending at discharge Category Date Time Status Blood Culture Routine Lab 10/20/21 21:39 Results Blood Culture Routine Lab 10/20/21 21:41 Results Complete Blood Count w/Auto AM LABS Lab 10/22/21 04:00 Ordered Radiology Impressions Head CT 10/19/21 16:01 IMPRESSION: 1. Lateral and 3rd ventricular predominant ventriculomegaly, slight interval increase in size. 2. Mild chronic microvascular ischemic white matter disease. Chest X-Ray 10/19/21 17:16 IMPRESSION: 1. No acute cardiopulmonary process. 2. Incidental/nonacute findings are listed in the report. Chest CTA 10/19/21 17:42 IMPRESSION: 1. No evidence for pulmonary embolism. 2. No acute cardiopulmonary process. 3. Incidental/nonacute findings are listed in the report. Laboratory Results WBC 6.2 10^3/uL (4.0-10.0) 10/21/21 04:58 RBC 4.21 10^6/uL (4.1-5.3) 10/21/21 04:58 Hgb 12.3 g/dL (11.5-15.3) 10/21/21 04:58 Hct 36.2 % (37.0-47.0) L 10/21/21 04:58 MCV 86.0 fl (81-99) 10/21/21 04:58 MCH 29.2 pg (28.0-34.0) 10/21/21 04:58 MCHC 34.0 g/dL (30.0-36.0) 10/21/21 04:58 RDW 12.3 % (12.1-15.1) 10/21/21 04:58 Plt Count 323 10^3/cmm (130-400) 10/21/21 04:58 MPV 9.6 fL (7.4-10.4) 10/21/21 04:58 Neut % (Auto) 49.1 % 10/21/21 04:58 Lymph % (Auto) 32.5 % 10/21/21 04:58 [place] % (Auto) 13.1 % 10/21/21 04:58 Eos % (Auto) 3.2 % 10/21/21 04:58 Baso % (Auto) 1.1 % 10/21/21 04:58 Neut # (Auto) 3.02 10^3/uL (1.8-7.7) 10/21/21 04:58 Lymph # (Auto) 2.0 10^3/uL (0.8-4.8) 10/21/21 04:58 [place] # (Auto) 0.8 10^3/uL (0.2-0.9) 10/21/21 04:58 Eos # (Auto) 0.2 10^3/uL (0.0-0.8) 10/21/21 04:58 Baso # (Auto) 0.1 10^3/uL (0.0-0.1) 10/21/21 04:58 Nucleated RBC % (auto) 0 % 10/21/21 04:58 Nucleated RBCs # 0.0 /100WBC 10/21/21 04:58 Specimen Type Arterial 10/19/21 17:26 Sample Site Brachial, left 10/19/21 17:26 ABG pH 7.40 (7.35-7.45) 10/19/21 17:26 ABG pCO2 40.1 mmHg (35-45) 10/19/21 17:26 ABG pO2 64.1 mmHg (80.0-100.0) L 10/19/21 17:26 ABG HCO3 24.8 mmol/L (22-26) 10/19/21 17: ABG O2 Saturation 93.5 10/19/21 17: ABG Base Excess 0.1 mmol/L (-2.0-2.0) 10/19/21 17:26 José Luis Test N/a 10/19/21 17: A-a O2 Gradient 10.9 mmHg (5-10) H 10/19/21 17:26 Hematocrit 41.0 % (37-47) 10/19/21 17:26 Hgb O2 Saturation 92.0 % (95-100) L 10/19/21 17: Carboxyhemoglobin 1.0 %THgb (0.4-20.1) 10/19/21 17: Methemoglobin 0.6 % (0.4-1.5) 10/19/21 17:26 Total Hemoglobin 13.4 g/dL (12-16) 10/19/21 17:26 Sodium 138.0 mmol/L (131-143) 10/19/21 17:26 Potassium 4.3 mmol/L (3.5-5.0) 10/19/21 17:26 Glucose 165.0 mg/dL (70-115) H 10/19/21 17:26 Ionized Calcium 1.2 mmol/L (1.1-1.4) 10/19/21 17:26 O2 Delivery Device Nc 10/19/21 17:26 O2 Liters/Min 2.0 % 10/19/21 17:26 FiO2 28.0 % 10/19/21 17:26 Television Production Clerk ID Amh 10/19/21 17:26 Sodium 137 mmol/L (136-145) 10/21/21 04:58 Potassium 3.8 mmol/L (3.5-5.1) 10/21/21 04:58 Chloride 104 mmol/L (98-107) 10/21/21 04:58 Carbon Dioxide 22 mmol/L (22-29) 10/21/21 04:58 Anion Gap 14.8 (5-19) 10/21/21 04:58 BUN 11 mg/dL (8-23) 10/21/21 04:58 Creatinine 0.9 mg/dL (0.5-0.9) 10/21/21 04:58 GFR Calculation 61.9 mL/min (90-130) L 10/21/21 04:58 Glucose 132 mg/dL (65-115) H 10/21/21 04:58 POC Glucose 137 mg/dL (70-110) H 10/21/21 04:20 Estimat Average Glucose 192 10/21/21 04:58 Hemoglobin A1c 8.3 % (4.0-6.0) H 10/21/21 04:58 Calculated Osmolality 285 mOsm/kg (285-295) 10/21/21 04:58 Calcium 8.4 mg/dL (8.5-10.5) L 10/21/21 04:58 Magnesium 2.3 mg/dL (1.7-2.3) 10/20/21 04:40 Total Bilirubin 0.3 mg/dL (0.15-1.2) 10/21/21 04:58 AST 20 U/L (0-32) 10/21/21 04:58 ALT 18 U/L (0-33) 10/21/21 04:58 Alkaline Phosphatase 128 IU/L (35-105) H 10/21/21 04:58 Troponin T Baseline 6 ng/L (0-10) 10/19/21 16:33 Troponin T 120 Minute 6.00 ng/L (0-10) 10/19/21 19:25 Delta Troponin T 0 ABS# (0-10) 10/19/21 19:25 Troponin T Hi Sens 6Hr 7.67 ng/L (0-10) 10/19/21 23:37 Troponin T Hi Sens 6Hr Delta 1.67 ng/L (0-12) 10/19/21 23:37 NT-Pro-B Natriuret Pep 172 pg/mL (0-125) H 10/19/21 16:37 Total Protein 6.6 g/dL (6.6-8.7) 10/21/21 04:58 Albumin 3.0 g/dL (3.5-5.2) L 10/21/21 04:58 Globulin 3.6 g/dL (1.3-4.6) 10/21/21 04:58 Triglycerides 246 mg/dL (0-150) H 10/21/21 04:58 Cholesterol 165 mg/dL (0-200) 10/21/21 04:58 LDL Cholesterol, Calc 83 mg/dL (50-129) 10/21/21 04:58 Total VLDL Cholesterol 49 mg/dL (0-30) H 10/21/21 04:58 HDL Cholesterol 33 mg/dL (60-100) L 10/21/21 04:58 Cholesterol/HDL Ratio 5.00 mg/dL (0.0-4.40) H 10/21/21 04:58 TSH 2.08 uIU/mL (0.27-4.20) 10/20/21 04:40 Urine Color Yellow (Yellow) 10/21/21 00:02 Urine Appearance Clear (CLEAR) 10/21/21 00:02 Urine pH 6 (5-7) 10/21/21 00:02 Ur Specific [place] 1.010 (1.005-1.030) 10/21/21 00:02 Urine Protein Neg (Negative) 10/21/21 00:02 Urine Glucose (UA) 4+ (Normal) H 10/21/21 00:02 Urine Ketones Negative (Negative) 10/21/21 00:02 Urine Blood Neg (Negative) 10/21/21 00:02 Urine Nitrate Negative (Negative) 10/21/21 00:02 Urine Bilirubin Neg (Negative) 10/21/21 00:02 Urine Urobilinogen Norm mg/dL (Negative) 10/21/21 00:02 Ur Leukocyte Esterase Negative (Negative) 10/21/21 00:02 Urine Opiates Screen Positive ng/mL (Negative) H 10/21/21 00:02 Ur Barbiturates Screen Negative ng/mL (Negative) 10/21/21 00:02 Ur Phencyclidine Scrn Negative ng/mL (Negative) 10/21/21 00:02 Ur Amphetamines Screen Negative ng/mL (Negative) 10/21/21 00:02 U Benzodiazepines Scrn Positive ng/mL (Negative) H 10/21/21 00:02 Urine Cocaine Screen Negative ng/mL (Negative) 10/21/21 00:02 U Marijuana (THC) Screen Negative ng/mL (Negative) 10/21/21 00:02 Coronavirus 229E (PCR) Not detected (NOT DETECT) 10/20/21 Unknown Influenza Type A Ag Negative (Negative) 10/20/21 Unknown Influenza Type B Ag Negative (Negative) 10/20/21 Unknown SARS-CoV-2 (PCR) Not detected (NOT DETECT) 10/20/21 Unknown Vitals Last Vital Signs Temp 98.5 F 10/21/21 07:06 Pulse 72 10/21/21 07:06 Resp 16 10/21/21 07:06 BP 120/59 10/21/21 07:06 Pulse Ox 96 10/21/21 07:06 Discharge Plan Discharge Patient Disposition: Home Condition: Stable Prescriptions: New levofloxacin 500 mg tablet 500 mg PO Q24H 3 Days Qty: 3 0RF Continued venlafaxine 150 mg Capsule,Extended Release 24hr 150 mg PO DAILY 0RF clonazepam 0.5 mg Tablet 0.5 mg PO BEDTIME 0RF simvastatin 20 mg Tablet 20 mg PO DAILY 0RF Glyxambi 25-5 mg Tablet 1 tab PO QAM 0RF Discharge Orders: Discharge Order (Routine); Ordered 10/21/21 Ordered By: Lucas Rousseau Other Ambulatory Orders: DME: Walker (Order) Location: None Selected Ordered By: Lucas Rousseau Referrals: Lenka Mehta DO [Referring] - 2 weeks Discharge Diet: Cardiac and Diabetic Discharge Activity: Resume usual activity and Increase activity as tolerated Patient Instructions: Opioid Safety Activity Restrictions/Additional Instructions: Follow-up with an outpatient neurologist within next 1 week for further readjustment of COMPUTER HELP DESK REPRESENTATIVE shunt. Follow the primary care provider within next 2 weeks. Discharge Attestations Time Spent in Discharge Care*: greater than 30 min Specific Discharge Activities: educating patient, discussing with case repairer/social workers/dc planners, documenting/other paperwork and evaluating patient/reviewing data Status at Discharge: Cognitive status at discharge: mildly impaired cognition, Behavioral status at discharge: cooperative, Functional status at discharge: uses cane/walker, Overall status at discharge: patient is progressing back to baseline Quality Metrics Clinical Quality Measures [ No reported AMI, CVA or VTE this stay] Coding Level of Care Code Acute Chg FW DC note Diagnoses Dizziness R42 Hypoxia R09.02 Sinusitis J32.9 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
[2021-10-21] MEDS: ondansetron 2 mg/ML SDV 2 mL 4 MG IVP (12:00)
[2021-10-21 12:09] LABS: Glucose Point of Care 182 mg/dL (70-110)
--- NOTE | 2021-10-21 14:00 | PC.NURSE ---
IV removed from patient and she tolerated it well. Patient is A&O x3. Respirations even and non-labored on room air. Reviewed patient discharge with patient. Patient verbalized understanding of discharge instructions including the need to picker feeder her antibiotic from the pharmacy. Patient wheel chaired to private car.
[2021-10-21 14:18] VITALS: BP 120/59; PULSE 72; RESP 16; TEMP 36.9; O2SAT 96
== END 2021-10-21 14:00 | disposition home or self-care (01) ==
LOC: ER 19:45 → MEDSURG 21:17
PROVIDERS: Family Medicine; Admitting Provider Internal Medicine; Emergency Provider Emergency Medicine; Visit Provider Student in an Organized Health Care Education/Training Program
DX: R42 Dizziness and giddiness (principal); R09.02 Hypoxemia; J32.9 Chronic sinusitis, unspecified; Q03.1 Atresia of foramina of Magendie and Luschka; Z98.2 Presence of cerebrospinal fluid drainage device; J40 Bronchitis, not specified as acute or chronic; R51.9 Headache, unspecified; F03.90 Unspecified dementia, unspecified severity, without behavioral disturbance, psychotic disturbance, mood disturbance, and anxiety; R05.9 Cough, unspecified; R06.00 Dyspnea, unspecified
CPT/HCPCS: 36415; 36416; 36600; 70450; 71045; 71275; 80048; 80051; 80053; 80061; 80306; 81003; 82330; 82805; 82962; 83036; 83735; 83880; 84443; 84484; 85025; 86403; 87040; 87449; 87635; 87641; 87804; 93005; 96365; 96372; 96375; 97110; 97116; 97161; 97530; 99285; G0378; J1650; J1956; J2270; J2405; J2550; J7030; J7040; Q9967

== ENCOUNTER 2022-10-06 14:28 | Outpatient (RCR) | payer MEDICARE, SELFPAY | END 2022-10-07 23:59 | disposition home or self-care (01) | LOC: SPT 14:28 | PROVIDERS: PCP Family Medicine; Visit Provider Family Medicine | DX: M62.81 Muscle weakness (generalized) (principal) | CPT/HCPCS: 97161 ==

== ENCOUNTER 2022-10-08 06:00 | Outpatient (RCR) | payer MEDICARE, SELFPAY | END 2022-11-06 23:59 | disposition home or self-care (01) | LOC: SPT 06:00 | PROVIDERS: PCP Family Medicine; Visit Provider Family Medicine | DX: M62.81 Muscle weakness (generalized) (principal) | CPT/HCPCS: 97110 ==

== ENCOUNTER 2023-01-29 19:03 | Emergency (ER) | payer MEDICARE, MEDICAID, SELFPAY ==
[2023-01-29] VITALS (10 sets, daily range): BP systolic 116–153; BP diastolic 54–95; PULSE 64–76; RESP 16–18; TEMP 37; O2SAT 92–96; BMI 27.3
--- NOTE | 2023-01-29 19:22 | CTR_ITS ---
PROCEDURE INFORMATION: Exam: CT Head Without Contrast Exam date and time: 01/29/2023 7:30 PM Age: 72 years old Clinical indication: Pain; Headache; Prior surgery; Surgery date: 6+ months; Surgery type: Shunt; Patient HX: DIA with dizziness. ; Additional info: Headache, dizzy, HX of svp programmatic tv shunt TECHNIQUE: Imaging protocol: Computed tomography of the head without contrast. Radiation optimization: All CT scans at this facility use at least one of these dose optimization techniques: automated exposure control; mA and/or kV adjustment per patient size (includes targeted exams where dose is matched to clinical indication); or iterative reconstruction. REPORTING DATA: Count of CT and Cardiac NM exams in prior 12 months: This patient has received 0 known CTs and 0 known cardiac nuclear medicine studies in the 12 months prior to the current study. COMPARISON: CT head wo con* [id number] 10/19/2021 4:40 PM RADIATION DOSE METRICS: Total DLP (mGy-cm): 1022.88 FINDINGS: Tubes, catheters and devices: Posterior approach right PETROLEUM PRODUCTION ENGINEER shunt catheterization redemonstrated and similar in position. Ventriculomegaly persists and similar to the prior examination. Brain: Subcortical and periventricular white matter changes consistent with small-vessel ischemic disease in the appropriate clinical setting. Small-vessel ischemic disease. No acute intracranial abnormality. Cerebral ventricles: See Tubes, catheters and devices finding. Paranasal sinuses: Visualized sinuses are unremarkable. No fluid levels. Mastoid air cells: Visualized mastoid air cells are well aerated. Bones/joints: Unremarkable. No acute fracture. Soft tissues: Unremarkable. CT/CT head wo con* [id number] IMPRESSION: 1. No acute intracranial abnormality. 2. Small-vessel ischemic disease. 3. Posterior approach right PETROLEUM PRODUCTION ENGINEER shunt catheterization redemonstrated and similar in position. Ventriculomegaly persists and similar to the prior examination.
[2023-01-29] MEDS: morphine 4 mg/mL SDV 1 mL IVP (20:08)
[2023-01-29] MEDS: ondansetron 2 mg/ML SDV 2 mL 4 MG IVP (20:09)
[2023-01-29] MEDS: dexamethasone 4 mg/mL INJ 8 MG IVP (20:09)
[2023-01-29] MEDS: metoclopramide 5 mg/mL SDV 2 mL 10 MG IVP (20:09)
[2023-01-29 20:11] LABS: Basophils # 0.1 10^3/uL (0.0-0.1); Basophils % 1.6 %; Eosinophils # 0.2 10^3/uL (0.0-0.8); Eosinophils % 3.9 %; Hematocrit 44.4 % (36-47); Lymphocytes # 1.2 10^3/uL (0.8-4.8); Lymphocytes % 23.3 %; Mean Corpuscular HGB Conc 33.6 g/dL (30-55); Mean Corpuscular Hemoglobin 29.6 pg (27-33); Mean Corpuscular Volume 88.1 fl (85-98); Mean Platelet Volume 10.5 fL (7.4-10.4); Monocytes # 0.4 10^3/uL (0.2-0.9); Monocytes % 7.4 %; Neutrophils # 3.28 10^3/uL (1.8-7.7); Neutrophils % 63.6 %; Nucleated Red Blood Cells % 0 %; Platelet Count 163 10^3/cmm (157-399); Red Blood Count 5.04 10^6/uL (3.85-5.65); Red Cell Distribution Width 13.4 % (12.1-15.1); White Blood Count 5.15 10^3/uL (3.29-11.43)
--- NOTE | 2023-01-29 20:19 | PC.NURSE ---
Patient stated that she could not produce urine specimen at this time. Patient was left with urine specimen cup and educated to use bedside commode if possible. Pt verbalized understanding at this time.
--- NOTE | 2023-01-29 20:25 | ED_ITS ---
HPI - Headache General: Chief Complaint: Headache Stated Complaint: neck/head pain x1 week Time Seen by Provider: 01/29/23 19:04 History of Present Illness: 72-year-old female states she has had a headache for the last 7 days or so. She has pain to the top of her neck as well. No back pain. No increased pain with neck flexion or movement. She says she has had a low-grade fever, but none in the last several days. She called her doctor, and was told to come here for evaluation. No weakness, language problems, or any other neurological symptoms. She lives alone. Associated symptoms: Reports fever(s); Deny chest pain, confusion, nausea, rash or vomiting Review of Systems Const: Reports: fever(s); Denies: chills or body aches Eyes: Denies: change in vision Card: Denies: chest pain or palpitations Resp: Denies: dyspnea, productive cough, non-productive cough or wheezing GI: Denies: abdominal pain, nausea, vomiting, diarrhea or hematochezia : Denies: difficulty voiding Skin/Breast: Denies: rash Neuro: Reports: headache(s); Denies: weakness in extremities, dizziness or confusion PFSH ED PFSH: Medical History Dandy Walker malformation Dementia Migraine Normal pressure hydrocephalus Seizure Surgical History History of brain shunt History of cholecystectomy History of hysterectomy Physical Exam Const: COMMON NORMALS: no acute distress GENERAL APPEARANCE: cooperative; not ill appearing and not frail appearing HENMT: COMMON NORMALS: normocephalic, atraumatic and Normal external nose present HEAD & SCALP: normocephalic and atraumatic FACE & SINUS: normal facial exam and face symmetric NOSE: Normal external nose present Eye: COMMON NORMALS: Equal, round and reactive pupils present and EOMs intact bilaterally PUPIL: Yes Equal, round and reactive pupils present Neck/C-Spine: GENERAL: Yes trachea midline Chest: CHEST: Yes Symmetrical chest wall rise Resp: COMMON NORMALS: normal respiratory effort, No retractions, No use of accessory muscles and clear to auscultation bilaterally AUSCULTATION: clear to auscultation bilaterally Cardio: COMMON NORMALS: regular rate and regular rhythm RATE: regular rate RHYTHM: regular rhythm GI: COMMON NORMALS: Normal to inspection, nondistended, normoactive bowel sounds present Extremity: COMMON NORMALS: no pedal edema Neuro: JENNIFER COMA SCALE: document GCS findings Jennifer coma scale eye opening: Spontaneous Jennifer coma scale verbal response: Orientated Jennifer coma scale motor response: Obey commands Jennifer coma scale total score: 15 SENSORY EXAM: Yes extremities (intact) Psych: COMMON NORMALS: speech normal SPEECH: Yes normal speech Skin: COMMON NORMALS: no rashes or lesions noted GENERAL SKIN EXAM: no rashes or lesions noted Course Vital Signs: Vital signs: Vital Signs Temperature 98.6 F 01/29/23 19:06 Pulse Rate 72 01/29/23 20:20 Respiratory Rate 18 01/29/23 20:20 Blood Pressure 142/80 01/29/23 20:20 Pulse Oximetry 92 01/29/23 20:20 Oxygen Delivery Me thod Room Air 01/29/23 20:20 MDM - Headache Medical Decision Making Head pain is now 0. Head CT is nonacute. QUALITY MEASUREMENT SPECIALIST shunt is in place with ventriculomegaly that is similar to prior. Laboratory is not remarkable. Urinalysis is negative save 4+ glucose. CRP is mildly elevated. No signs of meningitis on exam. She will be allowed discharge. Lab Data 01/29/23 20:06 01/29/23 20:[address] 01/29/23 19:22 IMPRESSION: 1. No acute intracranial abnormality. 2. Small-vessel ischemic disease. 3. Posterior approach right QUALITY MEASUREMENT SPECIALIST shunt catheterization redemonstrated and similar in position. Ventriculomegaly persists and similar to the prior examination. Laboratory Results WBC 5.15 10^3/uL (3.29-11.43) 01/29/23 20:06 RBC 5.04 10^6/uL (3.85-5.65) 01/29/23 20:06 Hgb 14.90 g/dL (11.27-16.99) 01/29/23 20:06 Hct 44.4 % (36-47) 01/29/23 20:06 MCV 88.1 fl (85-98) 01/29/23 20:06 MCH 29.6 pg (27-33) 01/29/23 20:06 MCHC 33.6 g/dL (30-55) 01/29/23 20:06 RDW 13.4 % (12.1-15.1) 01/29/23 20:06 Plt Count 163 10^3/cmm (157-399) 01/29/23 20:06 MPV 10.5 fL (7.4-10.4) H 01/29/23 20:06 Neut % (Auto) 63.6 % 01/29/23 20:06 Lymph % (Auto) 23.3 % 01/29/23 20:06 [place] % (Auto) 7.4 % 01/29/23 20:06 Eos % (Auto) 3.9 % 01/29/23 20:06 Baso % (Auto) 1.6 % 01/29/23 20:06 Neut # (Auto) 3.28 10^3/uL (1.8-7.7) 01/29/23 20:06 Lymph # (Auto) 1.2 10^3/uL (0.8-4.8) 01/29/23 20:06 [place] # (Auto) 0.4 10^3/uL (0.2-0.9) 01/29/23 20:06 Eos # (Auto) 0.2 10^3/uL (0.0-0.8) 01/29/23 20:06 Baso # (Auto) 0.1 10^3/uL (0.0-0.1) 01/29/23 20:06 Nucleated RBC % (auto) 0 % 01/29/23 20:06 Nucleated RBCs # 0.0 /100WBC 01/29/23 20:06 Sodium 137 mmol/L (136-145) 01/29/23 20:06 Potassium 4.6 mmol/L (3.5-5.1) 01/29/23 20:06 Chloride 102 mmol/L (98-107) 01/29/23 20:06 Carbon Dioxide 25 mmol/L (22-29) 01/29/23 20:06 Anion Gap 14.6 (5-19) 01/29/23 20:06 BUN 15 mg/dL (8-23) 01/29/23 20:06 Creatinine 1.1 mg/dL (0.5-0.9) H 01/29/23 20:06 GFR Calculation Not Reportable 01/29/23 20:06 Glucose 140 mg/dL (65-115) H 01/29/23 20:06 Calculated Osmolality 287 mOsm/kg (285-295) 01/29/23 20:06 Calcium 8.9 mg/dL (8.5-10.5) 01/29/23 20:06 Total Bilirubin 0.3 mg/dL (0.15-1.2) 01/29/23 20:06 AST 20 U/L (0-32) 01/29/23 20:06 ALT 23 U/L (0-33) 01/29/23 20:06 Alkaline Phosphatase 140 U/L (35-105) H 01/29/23 20:06 C-Reactive Protein 31.5 mg/L (0.0-4.9) H 01/29/23 20:06 Total Protein 7.2 g/dL (6.6-8.7) 01/29/23 20:06 Albumin 4.0 g/dL (3.5-5.2) 01/29/23 20:06 Globulin 3.2 g/dL (1.3-4.6) 01/29/23 20:06 Urine Color Colorless (Yellow) 01/29/23 21:40 Urine Appearance Clear (CLEAR) 01/29/23 21:40 Urine pH 5 (5-7) 01/29/23 21:40 Ur Specific [place] 1.010 (1.005-1.030) 01/29/23 21:40 Urine Protein Neg (Negative) 01/29/23 21:40 Urine Glucose (UA) 4+ (Normal) H 01/29/23 21:40 Urine Ketones Negative (Negative) 01/29/23 21:40 Urine Blood Neg (Negative) 01/29/23 21:40 Urine Nitrate Negative (Negative) 01/29/23 21:40 Urine Bilirubin Neg (Negative) 01/29/23 21:40 Urine Urobilinogen Neg mg/dL (Negative) 01/29/23 21:40 Ur Leukocyte Esterase Negative (Negative) 01/29/23 21:40 All radiology interpretation(s) finalized by discharge Discharge Plan Discharge Patient Disposition: Home Clinical Impression: Headache Condition: Stable Prescriptions: No Action venlafaxine 150 mg Capsule,Extended Release 24hr 150 mg PO DAILY clonazepam 0.5 mg Tablet 0.5 mg PO BEDTIME simvastatin 20 mg Tablet 20 mg PO DAILY Glyxambi 25-5 mg Tablet 1 tab PO QAM Discharge Orders: Discharge ED (Routine); Ordered 01/29/23 Ordered By: Eddie Sibley Referrals: Lenka Mehta DO [Primary Care Provider] - Patient Instructions: Acute Headache (ED) Activity Restrictions/Additional Instructions: Return for fever greater than 100, vomiting liquids or medications, mental status changes, worsening headache, other concerning symptoms. Follow-up with your doctor next week. Coding Level of Care Code ED Coin Purse Framer for Malcolm Dao
[2023-01-29 20:34] LABS: Alanine Aminotransferase 23 U/L (0-33); Alkaline Phosphatase 140 U/L (35-105); Blood Urea Nitrogen 15 mg/dL (8-23); C Reactive Protein 31.5 mg/L (0.0-4.9); Calcium 8.9 mg/dL (8.5-10.5); Carbon Dioxide 25 mmol/L (22-29); Chloride 102 mmol/L (98-107); Globulin 3.2 g/dL (1.3-4.6); Glucose 140 mg/dL (65-115); Osmolality Calculated 287 mOsm/kg (285-295); Sodium 137 mmol/L (136-145); Total Bilirubin 0.3 mg/dL (0.15-1.2); Total Protein 7.2 g/dL (6.6-8.7)
[2023-01-29 20:35] LABS: Anion Gap 14.6 (5-19); Aspartate Amino Transferase 20 U/L (0-32); Potassium 4.6 mmol/L (3.5-5.1)
[2023-01-29 21:59] LABS: Add Urine Microscopic? NO; Charge for UA Resulting for Rev
[2023-01-29 22:03] LABS: Bilirubin Urine Neg (Negative); Blood Urine Neg (Negative); Glucose Urine UA 4+ (Normal); Ketones Urine Negative (Negative); Leukocyte Esterase Urine Negative (Negative); Nitrate Urine Negative (Negative); Protein Urine Neg (Negative); Urine Appearance Clear (CLEAR); Urine Color Colorless (Yellow); Urobilinogen Urine Neg (Negative); pH Urine 5 (5-7)
[2023-01-30 00:37] VITALS: BP 141/58; PULSE 70; RESP 16; O2SAT 94
== END 2023-01-29 23:41 | disposition home or self-care (01) ==
PROVIDERS: Emergency Provider Emergency Medicine; PCP Family Medicine
DX: R51.9 Headache, unspecified (principal); F03.90 Unspecified dementia, unspecified severity, without behavioral disturbance, psychotic disturbance, mood disturbance, and anxiety
CPT/HCPCS: 70450; 80053; 81003; 85025; 86140; 96374; 96375; 99285; J1100; J2270; J2405; J2765

== ENCOUNTER 2024-07-24 06:24 | Emergency (ER) | payer MEDICARE, SELFPAY ==
[2024-07-24 06:28] VITALS: PULSE 100; RESP 16; TEMP 36.7; O2SAT 96; BMI 27.3
--- NOTE | 2024-07-24 06:29 | XRR_ITS ---
PROCEDURE INFORMATION: Exam: XR Abdomen Exam date and time: 07/24/2024 7:09 AM Age: 73 years old Clinical indication: Constipation TECHNIQUE: Imaging protocol: Radiologic exam of the abdomen. Views: Frontal supine view of the abdomen. 1 View. COMPARISON: CT angio chest PE protcl [id number] 10/19/2021 5:59 PM FINDINGS: Heart/Mediastinum: Ventricular peritoneal shunt is coiled in the left hemiabdomen. Gastrointestinal tract: Moderate to severe colonic stool burden. Organs: Cholecystectomy. Bones/joints: Mild right dextroconvex curvature of the lumbar spine. Demineralized bones. Degenerative change of the visualized osseous structures. XR/XR KUB portable [id number] IMPRESSION: No acute findings.
[2024-07-24 06:46] LABS: Basophils # 0.2 10^3/uL (0.0-0.1); Basophils % 1.3 %; Eosinophils # 0.1 10^3/uL (0.0-0.8); Eosinophils % 0.4 %; Hematocrit 47.1 % (36-47); Lymphocytes # 1.9 10^3/uL (0.8-4.8); Lymphocytes % 15.6 %; Mean Corpuscular HGB Conc 32.5 g/dL (30-55); Mean Corpuscular Volume 89.4 fl (85-98); Mean Platelet Volume 10.2 fL (7.4-10.4); Monocytes # 0.4 10^3/uL (0.2-0.9); Monocytes % 3.3 %; Neutrophils # 9.46 10^3/uL (1.8-7.7); Nucleated Red Blood Cells % 0 %; Platelet Count 335 10^3/cmm (157-399); Red Blood Count 5.27 10^6/uL (3.85-5.65); Red Cell Distribution Width 12.8 % (12.1-15.1); White Blood Count 11.97 10^3/uL (3.29-11.43)
--- NOTE | 2024-07-24 06:49 | ED_ITS ---
HPI - Female Genitourinary 2 General: Chief complaint: Urogenital-Female Stated complaint: URINARY PROBLEMS Time Seen by Provider: 07/24/24 06:28 History of Present Illness: 73-year-old female presents emergency ro om with complaint of inability to urinate for the last 2 days as well as severe constipation. Patient denies fevers or chills dysuria urgency or frequency. Patient is mildly altered. Denies cough shortness of breath or chest pain. She has tried some MiraLAX at home to relieve her constipation she is also been disimpacting herself per her report. Denies any blood in the stool. Associated symptoms: Deny abdominal pain Related Data Home Medications ?Medication ?Instructions ?Recorded ?Confirmed clonazepam 0.5 mg tablet 0.5 mg PO BEDTIME 10/19/21 0 07/24/24 empagliflozin 25 mg-linagliptin 5 1 tab PO QAM 2 07/24/24 mg tablet (Glyxambi) latanoprost 0.005 % eye drops 1 drp ophthalmic (eye) Q PM 07/24/24 07/24/24 levothyroxine 25 mcg tablet 75 mcg PO QAM 07/24/24 (Synthroid) venlafaxine 75 mg capsule,extended 75 mg PO DAILY 07/0807/24/24 release 24 hr Previous Rx's ?Medication ?Instructions ?Recorded ciprofloxacin HCl 250 mg tablet 250 mg PO BID #14 tabs 07/24/24 lactulose 10 gram/15 mL oral 30 ml PO Q2H 72 hours #1, 080 mL 07/24/24 solution (Generlac) polyethylene glycol 3350 17 17 g PO DAILY #850 grams 0 07/24/24 gram/dose oral powder (Miralax) Allergies Allergy/AdvReac Type Severity Reaction Status Date / Time doxycycline Allergy ADR-Dizzine Verified 01/29/23 19:14 ss metformin Allergy ALGY-Hives Verified 01/29/23 19:14 Penicillins Allergy ALGY-Hives Verified 01/29/23 19:14 Sulfa (Sulfonamide Allergy ADR-Vomitin Verified 01/29/23 19:14 Antibiotics) g Review of Systems 2 Const: Denies: fever(s) or chills Card: Denies: chest pain Resp: Denies: dyspnea GI: Denies: abdominal pain : Denies: dysuria, urinary frequency or urinary urgency Musc: Denies: neck pain or back pain Skin/Breast: Denies: rash PFSH ED 2 PFSH: Medical History Normal pressure hydrocephalus Dementia Migraine Seizure Dandy Walker malformation Surgical History History of hysterectomy History of cholecystectomy History of brain shunt Physical Exam 2 Const: COMMON NORMALS: no acute distress GENERAL APPEARANCE: cooperative and comfortable ORIENTATION/CONSCIOUSNESS: Yes awake HENMT: COMMON NORMALS: normocephalic, atraumatic and hearing grossly normal bilaterally HEAD & SCALP: normocephalic and atraumatic Resp: COMMON NORMALS: normal respiratory effort, No retractions, No use of accessory muscles and clear to auscultation bilaterally AUSCULTATION: clear to auscultation bilaterally Cardio: COMMON NORMALS: regular rate, regular rhythm and No murmurs present (Cardio) RATE: regular rate RHYTHM: regular rhythm GI: COMMON NORMALS: No hepatosplenomegaly present AUSCULTATION: Yes normoactive bowel sounds PALPATION: Yes Tenderness to palpation present (GI) (Mild suprapubic), No Guarding due to palpation present (GI) and Yes No hepatosplenomegaly present Extremity: COMMON NORMALS: normal to inspection, capillary refill normal, no clubbing, cyanosis or edema, no calf tenderness and no pedal edema Skin: COMMON NORMALS: no rashes or lesions noted GENERAL SKIN EXAM: no rashes or lesions noted Course 2 Vital Signs: Vital signs: Vital Signs Temperature 98.1 F 07/24/24 06:28 Pulse Rate 89 07/24/24 10:22 Respiratory Rate 16 07/24/24 06:28 Blood Pressure 154/89 07/24/24 10:22 Pulse Oximetry 99 07/24/24 10:22 Oxygen Delivery Me thod Room Air 07/24/24 06:59 MDM - Female Medical Decision Making Patient did have urinary retention over thousand with placement of Trevino she did feel quite a bit better additionally were able to get pretty good relief of her constipation with the enemas although it is incomplete at this point. She is improved enough to be discharged home. Will discharge home on lactulose for further relief of her constipation and start MiraLAX to prevent further constipation. Most concerned because of the amount of stool burden she still has yet to relieve herself of of her having recurrent urinary retention for now we will leave the Trevino catheter in and have her follow-up with her primary care doctor within the next 3 days to reevaluate the need. Medical Records I reviewed the patient's medical records. Lab Data I reviewed the patient's lab results. 07/24/24 06:37 07/24/24 06:37 Radiology Impressions KUB X-Ray 07/24/24 06:29 IMPRESSION: No acute findings. Abdomen/Pelvis CT 07/24/24 07:33 IMPRESSION: 1. Moderate rectal constipation. 2. Mild rectal wall thickening. The finding is consistent with mild stercoral proctitis. Clinical correlation with the patient's specific symptomatology is recommended. 3. Diverticulosis. 4. Prior cholecystectomy. Laboratory Results WBC 11.97 10^3/uL (3.29-11.43) H 07/24/24 06:37 RBC 5.27 10^6/uL (3.85-5.65) 07/24/24 06:37 Hgb 15.30 g/dL (11.27-16.99) 07/24/24 06:37 Hct 47.1 % (36-47) H 07/24/24 06:37 MCV 89.4 fl (85-98) 07/24/24 06:37 MCH 29.0 pg (27-33) 07/24/24 06:37 MCHC 32.5 g/dL (30-55) 07/24/24 06:37 RDW 12.8 % (12.1-15.1) 07/24/24 06:37 Plt Count 335 10^3/cmm (157-399) 07/24/24 06:37 MPV 10.2 fL (7.4-10.4) 07/24/24 06:37 Neut % (Auto) 79.0 % 07/24/24 06:37 Lymph % (Auto) 15.6 % 07/24/24 06:37 [place] % (Auto) 3.3 % 07/24/24 06:37 Eos % (Auto) 0.4 % 07/24/24 06:37 Baso % (Auto) 1.3 % 07/24/24 06:37 Neut # (Auto) 9.46 10^3/uL (1.8-7.7) H 07/24/24 06:37 Lymph # (Auto) 1.9 10^3/uL (0.8-4.8) 07/24/24 06:37 [place] # (Auto) 0.4 10^3/uL (0.2-0.9) 07/24/24 06:37 Eos # (Auto) 0.1 10^3/uL (0.0-0.8) 07/24/24 06:37 Baso # (Auto) 0.2 10^3/uL (0.0-0.1) H 07/24/24 06:37 Nucleated RBC % (auto) 0 % 07/24/24 06:37 Nucleated RBCs # 0.0 /100WBC 07/24/24 06:37 Sodium 135 mmol/L (136-145) L 07/24/24 06:37 Potassium 4.3 mmol/L (3.5-5.1) 07/24/24 06:37 Chloride 97 mmol/L (98-107) L 07/24/24 06:37 Carbon Dioxide 23 mmol/L (22-29) 07/24/24 06:37 Anion Gap 19.3 (5-19) H 07/24/24 06:37 BUN 18 mg/dL (8-23) 07/24/24 06:37 Creatinine 1.1 mg/dL (0.5-0.9) H 07/24/24 06:37 GFR Calculation Not Reportable 07/24/24 06:37 Glucose 314 mg/dL (65-115) H 07/24/24 06:37 Calculated Osmolality 294 mOsm/kg (285-295) 07/24/24 06:37 Calcium 9.4 mg/dL (8.5-10.5) 07/24/24 06:37 Total Bilirubin 0.4 mg/dL (0.15-1.2) 07/24/24 06:37 AST 9 U/L (0-32) 07/24/24 06:37 ALT 13 U/L (0-33) 07/24/24 06:37 Alkaline Phosphatase 178 U/L (35-105) H 07/24/24 06:37 Total Protein 8.5 g/dL (6.6-8.7) 07/24/24 06:37 Albumin 4.3 g/dL (3.5-5.2) 07/24/24 06:37 Globulin 4.2 g/dL (1.3-4.6) 07/24/24 06:37 Urine Color Yellow (Yellow) 07/24/24 07:06 Urine Appearance Cloudy (CLEAR) A 07/24/24 07:06 Urine pH 5.0 (5-7) 07/24/24 07:06 Ur Specific [place] 1.028 (1.005-1.030) 07/24/24 07:06 Urine Protein Negative (Negative) 07/24/24 07:06 Urine Glucose (UA) 3+ (Normal) H 07/24/24 07:06 Urine Ketones Trace (Negative) 07/24/24 07:06 Urine Blood 1+ (Negative) A 07/24/24 07:06 Urine Nitrate Negative (Negative) 07/24/24 07:06 Urine Bilirubin Negative (Negative) 07/24/24 07:06 Urine Urobilinogen 0.2 mg/dL (Negative) 07/24/24 07:06 Ur Leukocyte Esterase Trace (Negative) A 07/24/24 07:06 Urine RBC 0-4 /hpf (0-2) H 07/24/24 07:06 Urine WBC 21-50 /hpf (0-5) H 07/24/24 07:06 Ur Squamous Epith Cells 0-5 /hpf (0-5) 07/24/24 07:06 Amorphous Sediment Not Reportable 07/24/24 07:06 Urine Bacteria 4+ /hpf (NONE) H 07/24/24 07:06 Hyaline Casts 2.46 /lpf 07/24/24 07:06 Urine Yeast 1+ /hpf H 07/24/24 07:06 All radiology interpretation(s) finalized by discharge Discharge Plan Discharge Patient Disposition: Home Clinical Impression: Constipation, Urinary retention, Cystitis Condition: Stable Prescriptions: New lactulose [Generlac] 10 gram/15 mL solution 30 ml PO Q2H 3 Days Qty: 1080 0RF Rx Instructions: until desired laxative effect polyethylene glycol 3350 [Miralax] 17 gram/dose powder 17 g PO DAILY Qty: 850 0RF ciprofloxacin HCl 250 mg tablet 250 mg PO BID Qty: 14 0RF No Action clonazepam 0.5 mg Tablet 0.5 mg PO BEDTIME Glyxambi 25-5 mg Tablet 1 tab PO QAM latanoprost 0.005 % drops 1 drp ophthalmic (eye) QPM venlafaxine 75 mg capsule,extended release 24hr 75 mg PO DAILY levothyroxine [Synthroid] 25 mcg tablet 75 mcg PO QAM Discharge Orders: Discharge ED (Routine); Ordered 07/24/24 Ordered By: Stef Marquez Referrals: Lenka Mehta, [Primary Care Provider] - Discharge Diet: Usual diet Discharge Activity: Resume usual activity Patient Instructions: Constipation (ED), Opioid Safety, Pain Management Activity Restrictions/Additional Instructions: Thank you for choosing [facility] for your healthcare needs today. It is very important that you follow up as instructed or that you return to the Emergency Department should you have concerns or if your condition changes or worsens in any way. You were seen in the emergency room with complaints of constipation. He did have significant amount of urinary retention from the constipation. Will discharge you home use lactulose every 2 hours until adequate results achieved. Will leave the Trevino in place until the constipation has been relieved follow-up your primary care doctor the next 3 to 4 days. Print Language: Belarusian Coding Level of Care Code ED Laundry Attendant for Malcolm Dao
[2024-07-24 06:59] VITALS: BP 175/72; O2SAT 97
[2024-07-24 07:05] LABS: Alanine Aminotransferase 13 U/L (0-33); Albumin Level 4.3 g/dL (3.5-5.2); Alkaline Phosphatase 178 U/L (35-105); Anion Gap 19.3 (5-19); Aspartate Amino Transferase 9 U/L (0-32); Blood Urea Nitrogen 18 mg/dL (8-23); Calcium 9.4 mg/dL (8.5-10.5); Carbon Dioxide 23 mmol/L (22-29); Chloride 97 mmol/L (98-107); Creatinine Clr Calc Pharmacy 51.8148; Globulin 4.2 g/dL (1.3-4.6); Glucose 314 mg/dL (65-115); Osmolality Calculated 294 mOsm/kg (285-295); Potassium 4.3 mmol/L (3.5-5.1); Sodium 135 mmol/L (136-145); Total Bilirubin 0.4 mg/dL (0.15-1.2); Total Protein 8.5 g/dL (6.6-8.7)
[2024-07-24 07:13] VITALS: BP 100/86; PULSE 91; O2SAT 98
--- NOTE | 2024-07-24 07:33 | CTR_ITS ---
PROCEDURE INFORMATION: Exam: CT Abdomen And Pelvis Without Contrast Exam date and time: 07/24/2024 7:47 AM Age: 73 years old Clinical indication: Constipation; Abdominal pain; Localized; Lower; Prior surgery; Surgery date: 6+ months; Surgery type: Shunt TECHNIQUE: Imaging protocol: Computed tomography of the abdomen and pelvis without contrast. Radiation optimization: All CT scans at this facility use at least one of these dose optimization techniques: automated exposure control; mA and/or kV adjustment per patient size (includes targeted exams where dose is matched to clinical indication); or iterative reconstruction. COMPARISON: CR XR KUB portable [id number] 07/24/2024 7:09 AM RADIATION DOSE METRICS: Total DLP (mGy-cm): 741.33 FINDINGS: Tubes, catheters and devices: A right-sided ventriculoperitoneal shunt catheter descends the right lower chest, enters the medial right mid-upper abdomen, descends into the left iliac fossa, with the tip in the left lateral paracolonic gutter. Heart: Mild aortic valvular calcification is present. Mitral annular (fibrous continuity) calcification is present. Liver: Normal. No mass. Gallbladder and biliary ducts: The gallbladder is surgically absent, with metallic clips in the gallbladder fossa. No extrahepatic biliary ductal dilatation or calculus. Pancreas: Normal. No ductal dilation. Spleen: Normal. No splenomegaly. Adrenal glands: Normal. No mass. Kidneys and ureters: Normal. No hydronephrosis. Stomach and bowel: Moderate rectal constipation. Mild rectal wall thickening. A ascending colonic diverticulum is present without evidence of diverticulitis. Appendix: The vermiform appendix is normal. Intraperitoneal space: No free air. No significant fluid collection. Vasculature: Left pelvic small calcified phleboliths. Marked aortic atherosclerotic calcification without aneurysm. The iliac arteries show moderate bilateral atherosclerotic calcifications without evidence of aneurysm. Lymph nodes: No enlarged lymph nodes. Urinary bladder: The urinary bladder is drained by a Trevino catheter. Reproductive: Unremarkable as visualized. Bones/joints: Mild rightward lumbar spinal curvature. Soft tissues: A tiny paraumbilical hernia containing only abdominal fat is noted. Right gluteal adipose calcified injection granulomata. Right lower lumbar facet primary osteoarthritis. CT/CT abdomen pelvis wo con [id number] IMPRESSION: 1. Moderate rectal constipation. 2. Mild rectal wall thickening. The finding is consistent with mild stercoral proctitis. Clinical correlation with the patient's specific symptomatology is recommended. 3. Diverticulosis. 4. Prior cholecystectomy.
[2024-07-24 07:41] LABS: Bilirubin Urine Negative (Negative); Blood Urine 1+ (Negative); Glucose Urine UA 3+ (Normal); Ketones Urine Trace (Negative); Leukocyte Esterase Urine Trace (Negative); Nitrate Urine Negative (Negative); Protein Urine Negative (Negative); Specific Gravity, Urine 1.028 (1.005-1.030); Urine Appearance Cloudy (CLEAR); Urine Color Yellow (Yellow); Urobilinogen Urine 0.2 mg/dL (Negative)
[2024-07-24 07:44] LABS: Add Urine Microscopic? YES; Bacteria Urine 4+ /hpf; Hyaline Casts Urine 2.46 /lpf; Squamous Epithelial Cell Urine 0-5 /hpf (0-5); WBC Urine 21-50 /hpf (0-5)
[2024-07-24 07:57] LABS: UA Slide Review UA Slide Review Perf
[2024-07-24 07:58] LABS: RBC Urine 0-4 /hpf (0-2)
[2024-07-24 07:59] LABS: Add Urine Culture? Yes
[2024-07-24 09:41] VITALS: BP 145/113; PULSE 90; O2SAT 95
[2024-07-24 10:22] VITALS: BP 154/89; PULSE 89; O2SAT 99
== END 2024-07-24 10:41 | disposition home or self-care (01) ==
PROVIDERS: Emergency Provider Family Medicine; PCP Family Medicine
DX: K59.00 Constipation, unspecified (principal); R33.9 Retention of urine, unspecified; N30.90 Cystitis, unspecified without hematuria
CPT/HCPCS: 36415; 51702; 51798; 74018; 74176; 80053; 81001; 85025; 87077; 87086; 87186; 99284

== ENCOUNTER 2024-07-25 11:45 | Emergency (ER) | payer MEDICARE, MEDICAID, SELFPAY ==
[2024-07-25 11:46] VITALS: BP 157/74; PULSE 82; RESP 16; TEMP 36.6; O2SAT 98; BMI 27.3
--- NOTE | 2024-07-25 12:18 | ED_ITS ---
HPI - Abdominal Pain 2 General: Chief Complaint: Abdominal Pain Stated Complaint: Well Check/Constipated Time Seen by Provider: 07/25/24 11:47 History of Present Illness: 73-year-old female presents emergency ro om complaining of generalized weakness. He was seen yesterday for constipation she had signs of mild bladder infection her blood sugar was elevated as well she had had elevated blood sugar in the past she had a normal anion gap. We discharged her home on oral antibiotics. Her blood sugar is not as elevated today. She called her doctor because she felt very weak they advised her to come back to the hospital. She states she has not had any fever sweats chills she did not even having any UTI symptoms at this time she denies chest pain shortness of breath or abdominal pain. She had abdominal pain yesterday when she was seen with constipation we done an enema which did help improve her symptoms. We also placed a Trevino because she was having urinary retention. She has not picked up her antibiotics or her lactulose since yesterday's visit. Her anticipation was to come to the hospital to be admitted until she felt better and stronger. Associated Symptoms: Denies chills, dysuria and fever(s) Related Data Home Medications ?Medication ?Instructions ?Recorded ?Confirmed clonazepam 0.5 mg tablet 0.5 mg PO BEDTIME 10/19/21 0 07/25/24 empagliflozin 25 mg-linagliptin 5 1 tab PO QAM 2 07/25/24 mg tablet (Glyxambi) latanoprost 0.005 % eye drops 1 drp ophthalmic (eye) Q PM 07/24/24 07/25/24 levothyroxine 25 mcg tablet 75 mcg PO QAM 07/24/24 (Synthroid) venlafaxine 75 mg capsule,extended 75 mg PO DAILY 07/0807/25/24 release 24 hr Previous Rx's ?Medication ?Instructions ?Recorded ciprofloxacin HCl 250 mg tablet 250 mg PO BID #14 tabs 07/24/24 lactulose 10 gram/15 mL oral 30 ml PO Q2H 72 hours #1, 080 mL 07/24/24 solution (Generlac) polyethylene glycol 3350 17 17 g PO DAILY #850 grams 0 07/24/24 gram/dose oral powder (Miralax) ciprofloxacin HCl 500 mg tablet 500 mg PO BID #14 tabs 07/25/24 (Cipro) Allergies Allergy/AdvReac Type Severity Reaction Status Date / Time doxycycline Allergy ADR-Dizzine Verified 01/29/23 19:14 ss metformin Allergy ALGY-Hives Verified 01/29/23 19:14 Penicillins Allergy ALGY-Hives Verified 01/29/23 19:14 Sulfa (Sulfonamide Allergy ADR-Vomitin Verified 01/29/23 19:14 Antibiotics) g Review of Systems 2 Const: Denies: fever(s) or chills Card: Denies: chest pain Resp: Denies: dyspnea GI: Denies: abdominal pain : Denies: dysuria, urinary frequency or urinary urgency Musc: Denies: neck pain or back pain Skin/Breast: Denies: rash PFSH ED 2 PFSH: Medical History Normal pressure hydrocephalus Dementia Migraine Seizure Dandy Walker malformation Surgical History History of hysterectomy History of cholecystectomy History of brain shunt Physical Exam 2 Const: GENERAL APPEARANCE: cooperative ORIENTATION/CONSCIOUSNESS: Yes awake, Yes oriented to person, Yes oriented to place and Yes oriented to time HENMT: COMMON NORMALS: normocephalic, atraumatic and hearing grossly normal bilaterally HEAD & SCALP: normocephalic and atraumatic Resp: COMMON NORMALS: normal respiratory effort, No retractions, No use of accessory muscles and clear to auscultation bilaterally AUSCULTATION: clear to auscultation bilaterally Cardio: COMMON NORMALS: regular rate, regular rhythm and No murmurs present (Cardio) RATE: regular rate RHYTHM: regular rhythm GI: COMMON NORMALS: Soft to palpation and No hepatosplenomegaly present A USCULTATION: Yes normoactive bowel sounds PALPATION: Yes Soft to palpation, No Tenderness to palpation present (GI), No Guarding due to palpation present (GI) and Yes No hepatosplenomegaly present Extremity: COMMON NORMALS: normal to inspection, capillary refill normal, no clubbing, cyanosis or edema, no calf tenderness and no pedal edema Neuro: SENSORIUM/ORIENTATION: Yes oriented to person, Yes oriented to place and Yes oriented to time Skin: COMMON NORMALS: no rashes or lesions noted GENERAL SKIN EXAM: no rashes or lesions noted Course 2 Vital Signs: Vital signs: Vital Signs Temperature 97.8 F 07/25/24 11:46 Pulse Rate 74 07/25/24 14:40 Respiratory Rate 16 07/25/24 11:46 Blood Pressure 157/74 07/25/24 11:46 Pulse Oximetry 93 07/25/24 14:40 MDM - Abdominal Pain Medical Decision Making Patient presented anticipating admission to the hospital for generalized weakness still she felt like she had improved and could go home. Discussed that I do not really have anything we can admit her for she had not filled her medication she had reviewed the culture from yesterday started growing a fair amount of gram-negative rods suspect will be E. coli we increased her Cipro sent a new prescription in for 500 mg twice a day. She is not particular more symptomatic than yesterday she does not have any flank pain I do not think it requires hospital admission at this point. Also encouraged her to get the lactulose to relieve her constipation still concerned that she may develop urinary outlet obstruction with the constipation she has remaining so leave the catheter in for now. Offered to have case management look at getting her placed the senior care she adamantly refused this did not want to have any discussion regarding this she prefer to go home. We set up home health consultation. Nursing and case management also contacted her pharmacy and are making arrangements for her either to machine pecan picker the medicines on the way home or have them delivered. Medical Records I reviewed the patient's medical records. Lab Data I reviewed the patient's lab results. 07/25/24 12:46 07/25/24 12:46 Labs/Radiology: Radiology Impressions Chest X-Ray 07/25/24 12:24 IMPRESSION: No acute cardiopulmonary disease. Laboratory Results WBC 12.70 10^3/uL (3.29-11.43) H 07/25/24 12:46 RBC 5.05 10^6/uL (3.85-5.65) 07/25/24 12:46 Hgb 14.90 g/dL (11.27-16.99) 07/25/24 12:46 Hct 47.9 % (36-47) H 07/25/24 12:46 MCV 94.9 fl (85-98) 07/25/24 12:46 MCH 29.5 pg (27-33) 07/25/24 12:46 MCHC 31.1 g/dL (30-55) 07/25/24 12:46 RDW 13.0 % (12.1-15.1) 07/25/24 12:46 Plt Count 272 10^3/cmm (157-399) 07/25/24 12:46 MPV 10.6 fL (7.4-10.4) H 07/25/24 12:46 Neut % (Auto) 71.2 % 07/25/24 12:46 Lymph % (Auto) 19.1 % 07/25/24 12:46 [place] % (Auto) 6.6 % 07/25/24 12:46 Eos % (Auto) 1.7 % 07/25/24 12:46 Baso % (Auto) 0.9 % 07/25/24 12:46 Neut # (Auto) 9.04 10^3/uL (1.8-7.7) H 07/25/24 12:46 Lymph # (Auto) 2.4 10^3/uL (0.8-4.8) 07/25/24 12:46 [place] # (Auto) 0.8 10^3/uL (0.2-0.9) 07/25/24 12:46 Eos # (Auto) 0.2 10^3/uL (0.0-0.8) 07/25/24 12:46 Baso # (Auto) 0.1 10^3/uL (0.0-0.1) 07/25/24 12:46 Nucleated RBC % (auto) 0 % 07/25/24 12:46 Nucleated RBCs # 0.0 /100WBC 07/25/24 12:46 Specimen Type Arterial 07/25/24 12:44 Sample Site Brachial, left 07/25/24 12:44 ABG pH 7.39 (7.35-7.45) 07/25/24 12:44 ABG pCO2 43.4 mmHg (35-45) 07/25/24 12:44 ABG pO2 61.3 mmHg (80.0-100.0) L 07/25/24 12:44 ABG PO2/FiO2 Ratio 291 07/25/24 12:44 ABG HCO3 26.0 mmol/L (22-26) 07/25/24 12:44 ABG O2 Saturation 92.9 07/25/24 12:44 ABG Base Excess 0.6 mmol/L (-2.0-2.0) 07/25/24 12:44 José Luis Test N/a 07/25/24 12:44 A-a O2 Gradient 4.4 mmHg (5-10) L 07/25/24 12:44 Hematocrit 45.0 % (37-47) 07/25/24 12:44 Hgb O2 Saturation 91.4 % (95-100) L 07/25/24 12:44 Carboxyhemoglobin 1.5 %THgb (0.4-20.1) 07/25/24 12:44 Methemoglobin 0.1 % (0.4-1.5) L 07/25/24 12:44 Total Hemoglobin 14.7 g/dL (12-16) 07/25/24 12:44 Sodium 136.0 mmol/L (131-143) 07/25/24 12:44 Potassium 3.9 mmol/L (3.5-5.0) 07/25/24 12:44 Glucose 204.0 mg/dL (70-115) H 07/25/24 12:44 Ionized Calcium 1.2 mmol/L (1.1-1.4) 07/25/24 12:44 O2 Delivery Device Room air 07/25/24 12:44 FiO2 21.0 % 07/25/24 12:44 Personal Care Assistant ID Amh 07/25/24 12:44 Sodium 131 mmol/L (136-145) L 07/25/24 12:46 Potassium 4.4 mmol/L (3.5-5.1) 07/25/24 12:46 Chloride 95 mmol/L (98-107) L 07/25/24 12:46 Carbon Dioxide 21 mmol/L (22-29) L 07/25/24 12:46 Anion Gap 19.4 (5-19) H 07/25/24 12:46 BUN 22 mg/dL (8-23) 07/25/24 12:46 Creatinine 1.2 mg/dL (0.5-0.9) H 07/25/24 12:46 GFR Calculation Not Reportable 07/25/24 12:46 Glucose 195 mg/dL (65-115) H 07/25/24 12:46 Calculated Osmolality 281 mOsm/kg (285-295) L 07/25/24 12:46 Calcium 8.7 mg/dL (8.5-10.5) 07/25/24 12:46 Total Bilirubin 0.5 mg/dL (0.15-1.2) 07/25/24 12:46 AST 12 U/L (0-32) 07/25/24 12:46 ALT 11 U/L (0-33) 07/25/24 12:46 Alkaline Phosphatase 167 U/L (35-105) H 07/25/24 12:46 Total Protein 7.7 g/dL (6.6-8.7) 07/25/24 12:46 Albumin 3.6 g/dL (3.5-5.2) 07/25/24 12:46 Globulin 4.1 g/dL (1.3-4.6) 07/25/24 12:46 Lipase 49 U/L (13-60) 07/25/24 12:46 Urine Color Yellow (Yellow) 07/25/24 13:23 Urine Appearance Clear (CLEAR) 07/25/24 13:23 Urine pH 5.0 (5-7) 07/25/24 13:23 Ur Specific Harlan 1.028 (1.005-1.030) 07/25/24 13:23 Urine Protein Negative (Negative) 07/25/24 13:23 Urine Glucose (UA) 3+ (Normal) H 07/25/24 13:23 Urine Ketones 1+ (Negative) H 07/25/24 13:23 Urine Blood 2+ (Negative) A 07/25/24 13:23 Urine Nitrate Positive (Negative) A 07/25/24 13:23 Urine Bilirubin Negative (Negative) 07/25/24 13:23 Urine Urobilinogen 0.2 mg/dL (Negative) 07/25/24 13:23 Ur Leukocyte Esterase Trace (Negative) A 07/25/24 13:23 Urine RBC 0-2 /hpf (0-2) 07/25/24 13:23 Urine WBC 51-100 /hpf (0-5) H 07/25/24 13:23 Ur Squamous Epith Cells 6-10 /hpf (0-5) 07/25/24 13:23 Amorphous Sediment Not Reportable 07/25/24 13:23 Urine Bacteria 3+ /hpf (NONE) H 07/25/24 13:23 Hyaline Casts 2.46 /lpf 07/25/24 13:23 Serum Ketones Negative (Negative) 07/25/24 12:46 All radiology interpretation(s) finalized by discharge Discharge Plan Discharge Patient Disposition: Home Clinical Impression: Weakness, Constipation, Urinary retention, Cystitis Condition: Stable Prescriptions: New ciprofloxacin HCl [Cipro] 500 mg tablet 500 mg PO BID Qty: 14 0RF No Action clonazepam 0.5 mg Tablet 0.5 mg PO BEDTIME Glyxambi 25-5 mg Tablet 1 tab PO QAM latanoprost 0.005 % drops 1 drp ophthalmic (eye) QPM venlafaxine 75 mg capsule,extended release 24hr 75 mg PO DAILY levothyroxine [Synthroid] 25 mcg tablet 75 mcg PO QAM lactulose [Generlac] 10 gram/15 mL solution 30 ml PO Q2H 3 Days Qty: 1080 0RF Rx Instructions: until desired laxative effect polyethylene glycol 3350 [Miralax] 17 gram/dose powder 17 g PO DAILY Qty: 850 0RF ciprofloxacin HCl 250 mg tablet 250 mg PO BID Qty: 14 0RF Discharge Orders: Discharge ED (Routine); Ordered 07/25/24 Ordered By: Stef Marquez Referrals: Lenka Mehta, [Primary Care Provider] - Discharge Diet: Usual diet Discharge Activity: Resume usual activity Patient Instructions: Opioid Safety, Pain Management Activity Restrictions/Additional Instructions: Thank you for choosing [facility] for your healthcare needs today. It is very important that you follow up as instructed or that you return to the Emergency Department should you have concerns or if your condition changes or worsens in any way. You were seen today in the emergency room for continued complaints of weakness. On reevaluation you still do have a bladder infection. You have admitted to that you have not picked up your medications at prescribed yesterday we did call and increase the dose of the antibiotic that was sent in based on the culture results that have returned preliminarily. We also asked your pharmacy to deliver them as you requested. You had complained of severe weakness when you came in. We do not have anything that would require hospital admission we offered to help you arrange for senior care care which you stated you preferred not to do and lieu of that we have asked case management to help set up home nursing health evaluation. Print Language: Welsh Coding Level of Care Code ED Computer Programming Manager for Malcolm Dao
--- NOTE | 2024-07-25 12:23 | PC.PHAR ---
Pt states did not case picker her 3 new orders from yesterday and has not taken any of her medications since Wednesday. She just isn't herself right now.
--- NOTE | 2024-07-25 12:24 | XRR_ITS ---
PROCEDURE INFORMATION: Exam: XR Chest Exam date and time: 07/25/2024 12:33 PM Age: 73 years old Clinical indication: Cough and dyspnea; Additional info: Dyspnea/cough TECHNIQUE: Imaging protocol: Radiologic exam of the chest. Views: 1 view. COMPARISON: CT angio chest PE protcl [id number] 10/19/2021 5:59 PM FINDINGS: Tubes, catheters and devices: [employer] shunt courses along the neck and chest on the right side. Lungs: Unremarkable. No consolidation. Pleural spaces: Unremarkable. No pleural effusion. No pneumothorax. Heart/Mediastinum: Unremarkable. No cardiomegaly. Bones/joints: Unremarkable. XR/XR chest 1V portable [id number] IMPRESSION: No acute cardiopulmonary disease.
[2024-07-25 12:54] LABS: Basophils # 0.1 10^3/uL (0.0-0.1); Basophils % 0.9 %; Eosinophils # 0.2 10^3/uL (0.0-0.8); Eosinophils % 1.7 %; Hematocrit 47.9 % (36-47); Lymphocytes # 2.4 10^3/uL (0.8-4.8); Lymphocytes % 19.1 %; Mean Corpuscular HGB Conc 31.1 g/dL (30-55); Mean Corpuscular Hemoglobin 29.5 pg (27-33); Mean Corpuscular Volume 94.9 fl (85-98); Mean Platelet Volume 10.6 fL (7.4-10.4); Monocytes # 0.8 10^3/uL (0.2-0.9); Monocytes % 6.6 %; Neutrophils # 9.04 10^3/uL (1.8-7.7); Neutrophils % 71.2 %; Nucleated Red Blood Cells % 0 %; Platelet Count 272 10^3/cmm (157-399); Red Blood Count 5.05 10^6/uL (3.85-5.65)
[2024-07-25 12:56] LABS: ABG PCO2 43.4 mmHg (35-45); ABG PH Result 7.39 (7.35-7.45); Alveolar-Arterial Oxygen Gradi 4.4 mmHg (5-10); Base Excess ABG 0.6 mmol/L (-2.0-2.0); Blood Gas Operator Identificat AMH; Blood Gas Sample Site Brachial, left; Blood Gas Sample Type Arterial; Carboxyhemoglobin 1.5 %THgb (0.4-20.1); HGB O2 Sat 91.4 % (95-100); Ionized Calcium Level - ABG 1.2 mmol/L (1.1-1.4); Methemoglobin 0.1 % (0.4-1.5); Oxygen Device ROOM AIR; Oxygen Saturation ABG 92.9; PO2 ABG 61.3 mmHg (80.0-100.0); PO2 FiO2 Ratio Arterial Blood 291; Potassium Level - ABG 3.9 mmol/L (3.5-5.0); Total Hemoglobin 14.7 g/dL (12-16)
[2024-07-25 13:04] LABS: Ketone (Acetest) Serum Negative (Negative)
[2024-07-25 13:14] LABS: Alanine Aminotransferase 11 U/L (0-33); Albumin Level 3.6 g/dL (3.5-5.2); Alkaline Phosphatase 167 U/L (35-105); Blood Urea Nitrogen 22 mg/dL (8-23); Calcium 8.7 mg/dL (8.5-10.5); Carbon Dioxide 21 mmol/L (22-29); Chloride 95 mmol/L (98-107); Creatinine Clr Calc Pharmacy 47.4969; Globulin 4.1 g/dL (1.3-4.6); Glucose 195 mg/dL (65-115); Lipase 49 U/L (13-60); Osmolality Calculated 281 mOsm/kg (285-295); Sodium 131 mmol/L (136-145); Total Bilirubin 0.5 mg/dL (0.15-1.2); Total Protein 7.7 g/dL (6.6-8.7)
[2024-07-25 13:19] LABS: Anion Gap 19.4 (5-19); Aspartate Amino Transferase 12 U/L (0-32); Potassium 4.4 mmol/L (3.5-5.1)
[2024-07-25 13:41] LABS: Bilirubin Urine Negative (Negative); Blood Urine 2+ (Negative); Glucose Urine UA 3+ (Normal); Ketones Urine 1+ (Negative); Leukocyte Esterase Urine Trace (Negative); Nitrate Urine Positive (Negative); Protein Urine Negative (Negative); Specific Gravity, Urine 1.028 (1.005-1.030); Urine Appearance Clear (CLEAR); Urine Color Yellow (Yellow); Urobilinogen Urine 0.2 mg/dL (Negative)
[2024-07-25 13:44] LABS: Add Urine Microscopic? YES; Bacteria Urine 3+ /hpf; Hyaline Casts Urine 2.46 /lpf; RBC Urine 0-2 /hpf (0-2); WBC Urine 51-100 /hpf (0-5)
[2024-07-25 13:55] LABS: Add Urine Culture? Yes
--- NOTE | 2024-07-25 14:34 | PC.SOCIAL ---
HH Request CM notified of need for HH to be arranged. ADAM spoke with patient who reports that she lives alone and sees Dr. Mehta for primary care. She does not have a preference of HH company. Referral filed to [facility] and Steve notified of referral.
[2024-07-25 14:40] VITALS: PULSE 74; O2SAT 93
== END 2024-07-25 14:42 | disposition home or self-care (01) ==
PROVIDERS: Emergency Provider Family Medicine; PCP Family Medicine
DX: R53.1 Weakness (principal); K59.00 Constipation, unspecified; R33.9 Retention of urine, unspecified; N30.90 Cystitis, unspecified without hematuria
CPT/HCPCS: 36600; 71045; 80051; 80053; 81001; 82009; 82330; 82805; 83690; 85025; 87077; 87086; 87186; 99284

== ENCOUNTER → 2024-08-24 13:10 | Outpatient (BNVA) | payer MEDICARE, SELFPAY | PROVIDERS: PCP Family Medicine; Visit Provider Student in an Organized Health Care Education/Training Program | DX: R03.0 Elevated blood-pressure reading, without diagnosis of hypertension (principal); Z12.11 Encounter for screening for malignant neoplasm of colon | CPT/HCPCS: 99204 ==